=== PATIENT | male | born 1960 | race Caucasian/White ===

== ENCOUNTER → 2016-08-31 | Outpatient (CLI) | payer OTHER ==
[~2016-08-31] MED LIST: ALEV220T26 PO; COUM2.5T11 PO; FENO160T10 PO; LOPI600T PO; MILKSUS PO; MIRA3350 PO; PERC5TAB6 PO; SENN8.6C PO; SIMV20TA2 PO; SIMV40TA2 PO
--- NOTE | 2016-08-31 14:33 | REP ---
RIGHT FOOT, TWO VIEWS: HISTORY: Injury. There is no acute fracture or dislocation. The joint spaces are normal in appearance. A 7 mm radiopaque foreign body is present in the soft tissue ventral to the second metatarsophalangeal joint space. IMPRESSION: Radiopaque foreign body as described above.
== END ==
LOC: M CLY 13:51
PROVIDERS: ATTEND Nurse Practitioner
DX: S90.851A Superficial foreign body, right foot, initial encounter (principal); X58.XXXA Exposure to other specified factors, initial encounter; Y92.89 Other specified places as the place of occurrence of the external cause; Y93.89 Activity, other specified; Y99.8 Other external cause status

== ENCOUNTER → 2018-03-13 | Outpatient (REF) | payer OTHER ==
[2018-03-13 17:43] LABS: ESTIMATED AVERAGE GLUCOSE 128 MG/DL (60-110); HEMOGLOBIN A1c 6.1 %
[2018-03-13 19:26] LABS: ALBUMIN 3.2 GM/DL (3.2-5.2); ALBUMIN/GLOBULIN RATIO 0.84 (1.00-1.93); ALKALINE PHOSPHATASE 101 U/L (45-117); ALT/SGPT 58 U/L (12-78); ANION GAP 9 MEQ/L (8-16); AST/SGOT 35 U/L (7-37); BILIRUBIN,TOTAL 0.5 MG/DL (0.2-1.0); BLOOD UREA NITROGEN 12 MG/DL (7-18); CALCIUM LEVEL 7.6 MG/DL (8.5-10.1); CARBON DIOXIDE LEVEL 24 MEQ/L (21-32); CHLORIDE LEVEL 105 MEQ/L (98-107); CHOLESTEROL LEVEL 288 MG/DL (<200); CHOLESTEROL RISK RATIO 12.521 (<5); CREATININE FOR GFR 0.97 MG/DL (0.70-1.30); GLOMERULAR FILTRATION RATE > 60.0 (>56); GLUCOSE, FASTING 166 MG/DL (70-100); HDL CHOLESTEROL 23 MG/DL (>40); NON-HDL-C 265 MG/DL; POTASSIUM SERUM 4.7 MEQ/L (3.5-5.1); SODIUM LEVEL 138 MEQ/L (136-145); TRIGLYCERIDES LEVEL 2199 MG/DL (<150)
== END ==
LOC: M SFHCCLAY 13:00
DX: E78.2 Mixed hyperlipidemia (principal); R73.9 Hyperglycemia, unspecified

== ENCOUNTER → 2018-07-03 | Outpatient (REF) | payer OTHER ==
[~2018-07-03] MED LIST changes: -COUM2.5T11 PO; +COUM2.5T17 PO; +MILK120011 PO; -MILKSUS PO; +PERC5TAB12 PO; -PERC5TAB6 PO
== END ==
LOC: M SFHCCLAY 16:16
PROVIDERS: ATTEND Family Medicine
DX: C44.319 Basal cell carcinoma of skin of other parts of face (principal)

== ENCOUNTER → 2018-08-13 | Outpatient (CLI) | payer OTHER ==
--- NOTE | 2018-08-14 02:59 | REP ---
Clinical: Preoperative assessment . Comparison: 09/02/2014 . Technique: PA and lateral. Findings: The mediastinum and cardiac silhouette are normal. Airway is patent and midline. The lung boykin are clear and without acute consolidation, effusion, or pneumothorax. The skeletal structures are intact and normal. Impression: 1. No acute cardiopulmonary process.
== END ==
LOC: M CLY 14:22
PROVIDERS: ATTEND Family Medicine
DX: Z01.818 Encounter for other preprocedural examination (principal)

== ENCOUNTER → 2018-08-14 | Outpatient (REF) | payer OTHER ==
[2018-08-14 11:31] LABS: MEAN CORPUSCULAR HEMOGLOBIN 36.6 pg (27.0-33.0); MEAN CORPUSCULAR HGB CONC 36.2 g/dl (32.0-36.5); MEAN CORPUSCULAR VOLUME 101.1 fl (80.0-96.0); PLATELET COUNT, AUTOMATED 217 10^3/uL (150-450); RED BLOOD COUNT 4.65 10^6/uL (4.30-6.10); WHITE BLOOD COUNT 6.3 10^3/uL (4.0-10.0)
[2018-08-14 13:10] LABS: BLOOD UREA NITROGEN 11 MG/DL (7-18); CARBON DIOXIDE LEVEL 24 MEQ/L (21-32); CHLORIDE LEVEL 101 MEQ/L (98-107); CREATININE FOR GFR 1.13 MG/DL (0.70-1.30); GLOMERULAR FILTRATION RATE > 60.0 (>56); GLUCOSE, FASTING 267 MG/DL (70-100); POTASSIUM SERUM 4.3 MEQ/L (3.5-5.1); SODIUM LEVEL 136 MEQ/L (136-145)
== END ==
LOC: M SFHCCLAY 08:44
PROVIDERS: ATTEND Family Medicine
DX: Z01.818 Encounter for other preprocedural examination (principal)

== ENCOUNTER 2018-08-20 09:44 | Day surgery (SDC) | payer OTHER ==
[~2018-08-20] VITALS: Ht 185.4 cm; Wt 132.9 kg
[2018-08-20] MEDS ORDERED: LIDOCAINE W/EPINEPHRINE 1% 20ML VIAL As Ordered ONE (10:21)
[2018-08-20] MEDS ORDERED: LIDOCAINE 2% W/EPIN INJ 20ML **PRES FREE As Ordered ONE (10:21)
[2018-08-20] MEDS ORDERED: POVIDONE-IODINE 5% OPHTH PREP SOL 30ML As Ordered ONE (10:22)
[2018-08-20] MEDS ORDERED: ceFAZolin 1GM INJ (J0690 PER 500MG) As Ordered ONE (10:28)
[2018-08-20] MEDS ORDERED: LABETALOL HCL 100 MG/20 ML VIAL As Ordered ONE (11:18)
[2018-08-20] MEDS ORDERED: ONDANSETRON 4MG/2ML VIAL (J2405) As Ordered ONE (11:18)
[2018-08-20] MEDS ORDERED: LIDOCAINE 2% INJ 100 MG/5 ML SDV (FOR ANES.) As Ordered ONE (11:18)
[2018-08-20] MEDS ORDERED: ESMOLOL INJ 100MG/10ML VIAL As Ordered ONE (11:18)
[2018-08-20] MEDS ORDERED: fentaNYL 100 MCG/2 ML INJECTION (J3010) As Ordered ONE (11:18)
[2018-08-20] MEDS ORDERED: PROPOFOL 200 MG/20 ML VIAL As Ordered ONE (11:18)
[2018-08-20] MEDS ORDERED: MIDAZOLAM INJ 2 MG/2 ML VIAL (J2250) As Ordered ONE (11:18)
[2018-08-20] MEDS ORDERED: KETAMINE HCL 200 MG/20 ML VIAL As Ordered ONE (11:18)
--- NOTE | 2018-08-20 12:15 | POST-OPPD ---
Postoperative Procedure Note Date Of Procedure: Aug 20, 2018 PREOPERATIVE DIAGNOSIS: Left taoist malignant lesion POSTOPERATIVE DIAGNOSIS: same FINDINGS: lesion 1x1cm PROCEDURE: Excision malignant lesion left taoist SURGEON: Dr Prasad ANESTHESIA: local with sedation SPECIMENS: left taoist malignant lesion FS (suture at 12 O'clock), additional margines 6-12o'clock ESTIMATED BLOOD LOSS: 1 cc REPLACED: none DRAINS: none COMPLICATIONS: none POSTOPERATIVE CONDITION: Stable ZHEN PRASAD DO Aug 20, 2018 12:15
[2018-08-20 12:50] VITALS: BP 141/96
--- NOTE | 2018-08-20 15:21 | RO ---
DATE OF PROCEDURE: 08/20/2018 PREPROCEDURE DIAGNOSIS: Left temporal malignant lesion. POSTPROCEDURE DIAGNOSIS: Left temporal malignant lesion. OPERATIVE PROCEDURE: Excision of malignant lesion left scientologist. SURGEON: Ludmila Lyons DO ANESTHESIA: Local with sedation. SPECIMENS: 1. Left temporal malignant lesion frozen section. 2. Suture at 12-o'clock. 3. The second specimen is additional margins 6-o'clock to 12-o'clock. ESTIMATED BLOOD LOSS: 1 mL REPLACED: None. DRAINS: None. COMPLICATIONS: None. INDICATION FOR THE PROCEDURE: This is a 58-year-old male who developed a red scaly lesion on his left scientologist. There was biopsy by his primary care doctor with diagnosis of basal cell nodular type. Patient is here for formal excision. The lesion measures 1 x 1 cm, pink in color, and scaly and it is on left scientologist. The lesion was outlined in preoperative holding area. Informed consent was obtained. All the risks and benefits, and alternatives discussed with the patient and he is ready to proceed. DESCRIPTION OF PROCEDURE: We brought the patient into the operating room, placed in supine position. Sequential stockings placed on the lower calves. He was prepped and draped in the usual sterile fashion at the start of procedure by infiltrating the with 2% lidocaine with epinephrine. When the local anesthetic had taken effect, an elliptical incision was carried including the whole lesion entirely with 2 mm margins. The suture is placed at 12-o'clock and then the specimen sent to pathology. Margins are positive between 8-o'clock and 12-o'clock, so an additional 2 mm margin was taken from 6-o'clock to 12-o'clock and sent to pathology. Upon examining that specimen, all the margins are free of tumor and with planned closure of our wound which is at this point 1.5 x 1.5 cm. The undermining was done using electrocautery and the flaps were elevated and then closed in layers with interrupted #4-0 Vicryl sutures, #5-0 Monocryl sutures and a dermal stitch of #6-0 plain gut suture. Steri-Strips were applied. Patient tolerated the procedure well and he was transferred to the recovery room in stable condition. BRADY
== END 2018-08-20 12:52 | disposition home or self-care (01) ==
LOC: M SDC 09:44
PROVIDERS: ATTEND Plastic Surgery Surgery of the Hand
DX: C44.319 Basal cell carcinoma of skin of other parts of face (principal); I10 Essential (primary) hypertension; E78.00 Pure hypercholesterolemia, unspecified; M15.0 Primary generalized (osteo)arthritis; F41.9 Anxiety disorder, unspecified; F32.9 Major depressive disorder, single episode, unspecified; G43.909 Migraine, unspecified, not intractable, without status migrainosus; J45.909 Unspecified asthma, uncomplicated; R06.83 Snoring; G47.9 Sleep disorder, unspecified; F14.90 Cocaine use, unspecified, uncomplicated; E66.9 Obesity, unspecified; Z68.38 Body mass index [BMI] 38.0-38.9, adult; Z79.899 Other long term (current) drug therapy; Z86.718 Personal history of other venous thrombosis and embolism; Z87.820 Personal history of traumatic brain injury; Z96.641 Presence of right artificial hip joint
CPT/HCPCS: 11442; 12051; 88305; 88331; J2250; J2405; J3010

== ENCOUNTER → 2018-10-25 | Outpatient (REF) | payer OTHER ==
[2018-10-25 11:43] LABS: HEMOGLOBIN A1c 6.9 %
[2018-10-25 12:58] LABS: ALBUMIN 3.3 GM/DL (3.2-5.2); ALT/SGPT 71 U/L (12-78); BILIRUBIN,TOTAL 0.6 MG/DL (0.2-1.0); BLOOD UREA NITROGEN 12 MG/DL (7-18); CALCIUM LEVEL 9.1 MG/DL (8.5-10.1); CARBON DIOXIDE LEVEL 26 MEQ/L (21-32); CHLORIDE LEVEL 104 MEQ/L (98-107); CHOLESTEROL LEVEL 319 MG/DL (<200); CHOLESTEROL RISK RATIO 13.869 (<5); CREATININE FOR GFR 0.92 MG/DL (0.70-1.30); GLOMERULAR FILTRATION RATE > 60.0 (>56); GLUCOSE, FASTING 172 MG/DL (70-100); HDL CHOLESTEROL 23 MG/DL (>40); NON-HDL-C 296 MG/DL; POTASSIUM SERUM 4.6 MEQ/L (3.5-5.1); SODIUM LEVEL 136 MEQ/L (136-145); TRIGLYCERIDES LEVEL 2620 MG/DL (<150)
== END ==
LOC: M SFHCCLAY 08:46
PROVIDERS: ATTEND Family Medicine
DX: E78.2 Mixed hyperlipidemia (principal); I10 Essential (primary) hypertension; R73.03 Prediabetes; F10.10 Alcohol abuse, uncomplicated

== ENCOUNTER → 2019-06-09 | Outpatient (REF) | payer OTHER ==
[~2019-06-09] MED LIST changes: -SIMV20TA2 PO; +SIMV20TA22 PO
[2019-06-09 17:07] LABS: BLOOD UREA NITROGEN 12 MG/DL (7-18); CALCIUM LEVEL 8.4 MG/DL (8.5-10.1); CARBON DIOXIDE LEVEL 26 MEQ/L (21-32); CHLORIDE LEVEL 102 MEQ/L (98-107); CREATININE FOR GFR 0.96 MG/DL (0.70-1.30); GLOMERULAR FILTRATION RATE > 60.0 (>56); GLUCOSE, FASTING 206 MG/DL (70-100); HEMOGLOBIN A1c 7.6 %; POTASSIUM SERUM 4.2 MEQ/L (3.5-5.1); SODIUM LEVEL 136 MEQ/L (136-145)
[2019-06-09 17:20] LABS: MAU/CREAT RATIO 79.1 MCG/MG (0.0-30.0)
== END ==
LOC: M SFHCCLAY 11:02
PROVIDERS: ATTEND Family Medicine
DX: E11.9 Type 2 diabetes mellitus without complications (principal)

== ENCOUNTER → 2019-10-15 | Outpatient (REF) | payer OTHER ==
[2019-10-15 16:39] LABS: ALBUMIN 3.5 GM/DL (3.2-5.2); ALT/SGPT 72 U/L (12-78); BILIRUBIN,TOTAL 0.7 MG/DL (0.2-1.0); BLOOD UREA NITROGEN 9 MG/DL (7-18); CALCIUM LEVEL 8.5 MG/DL (8.5-10.1); CARBON DIOXIDE LEVEL 26 MEQ/L (21-32); CHLORIDE LEVEL 103 MEQ/L (98-107); CHOLESTEROL LEVEL 351 MG/DL (<200); CREATININE FOR GFR 0.81 MG/DL (0.70-1.30); GLOMERULAR FILTRATION RATE > 60.0 (>56); GLUCOSE, FASTING 184 MG/DL (70-100); HDL CHOLESTEROL 27 MG/DL (>40); NON-HDL-C 324 MG/DL; POTASSIUM SERUM 4.3 MEQ/L (3.5-5.1); SODIUM LEVEL 138 MEQ/L (136-145); TOTAL PROTEIN 7.6 GM/DL (6.4-8.2); TRIGLYCERIDES LEVEL 746 MG/DL (<150)
[2019-10-15 16:52] LABS: HEMOGLOBIN A1c 7.4 %
== END ==
LOC: M SFHCCLAY 10:37
PROVIDERS: ATTEND Family Medicine
DX: F10.10 Alcohol abuse, uncomplicated (principal); E11.9 Type 2 diabetes mellitus without complications; E78.1 Pure hyperglyceridemia

== ENCOUNTER → 2019-10-16 | Outpatient (REF) | payer OTHER ==
[2019-10-16 17:01] LABS: MAU/CREAT RATIO 55.9 MCG/MG (0.0-30.0)
== END ==
LOC: M SFHCCLAY 15:55
PROVIDERS: ATTEND Family Medicine
DX: E11.9 Type 2 diabetes mellitus without complications (principal)

== ENCOUNTER → 2019-11-06 | Outpatient (REF) | payer OTHER | LOC: M LAB REF 17:40 | PROVIDERS: ATTEND Dermatology | DX: D22.61 Melanocytic nevi of right upper limb, including shoulder (principal) ==

== ENCOUNTER → 2020-01-26 | Outpatient (REF) | payer OTHER ==
[2020-01-27 20:31] LABS: BLOOD UREA NITROGEN 13 MG/DL (7-18); CALCIUM LEVEL 9.4 MG/DL (8.5-10.1); CARBON DIOXIDE LEVEL 29 MEQ/L (21-32); CHLORIDE LEVEL 106 MEQ/L (98-107); CREATININE FOR GFR 0.92 MG/DL (0.70-1.30); GLOMERULAR FILTRATION RATE > 60.0 (>56); GLUCOSE, FASTING 130 MG/DL (70-100); POTASSIUM SERUM 3.9 MEQ/L (3.5-5.1); SODIUM LEVEL 140 MEQ/L (136-145)
[2020-01-27 20:46] LABS: HEMOGLOBIN A1c 6.5 %
== END ==
LOC: M LABDRAWC 15:55
PROVIDERS: ATTEND Family Medicine
DX: I11.9 Hypertensive heart disease without heart failure (principal); E11.9 Type 2 diabetes mellitus without complications

== ENCOUNTER → 2020-03-04 | Outpatient (REF) | payer OTHER ==
[2020-03-05 12:43] LABS: BASO % 0.3 % (0.0-1.0); EOS % 0.4 % (0.0-3.0); HEMATOCRIT 45.6 % (42.0-52.0); HEMOGLOBIN 15.6 g/dl (13.5-17.5); LYMPH # 1.6 10^3/uL (1.5-5.0); LYMPH % 23.7 % (24.0-44.0); MEAN CORPUSCULAR HEMOGLOBIN 34.9 pg (27.0-33.0); MEAN CORPUSCULAR HGB CONC 34.2 g/dl (32.0-36.5); MONO # 0.5 10^3/uL (0.0-0.8); MONO % 7.3 % (0.0-5.0); NEUTROPHILS # 4.6 10^3/uL (1.5-8.5); PLATELET COUNT, AUTOMATED 281 10^3/uL (150-450); RED BLOOD COUNT 4.47 10^6/uL (4.30-6.10); WHITE BLOOD COUNT 6.8 10^3/uL (4.0-10.0)
[2020-03-05 13:35] LABS: THYROID STIMULATING HORMONE 1.81 uIU/ML (0.358-3.740)
== END ==
LOC: M SFHCCLAY 15:43
PROVIDERS: ATTEND Family Medicine
DX: R63.4 Abnormal weight loss (principal)

== ENCOUNTER → 2020-03-26 | Outpatient (CLI) | payer OTHER ==
[~2020-03-26] MED LIST changes: +ISOVUE-370 76% 100ML VIAL As Ordered ONE
--- NOTE | 2020-03-26 08:18 | REP ---
INDICATION: WT LOSS, MARIJUANA USE COMPARISON: 09/30/2012 TECHNIQUE: Axial contrast enhanced images from the thoracic inlet to the upper abdomen with coronal and sagittal reformations using 75 ml Isovue 370 intravenous contrast material. This CT examination was performed using the following dose reduction techniques: Automated exposure control, adjustment of mA and/or kv according to the patient's size, and use of iterative reconstruction technique. FINDINGS: Bilateral lung boykin are well aerated and essentially clear. No consolidation, pleural effusion, or pneumothorax. No suspicious nodule or mass lesion. Tracheobronchial tree is patent. No axillary, hilar, or mediastinal adenopathy. Mediastinum demonstrates normal thoracic aorta and pulmonary vasculature. Atherosclerotic changes to the coronary arteries suggested without cardiomegaly or pericardial effusion. Surrounding musculoskeletal structures are intact and without acute osseous abnormality. Upper abdomen demonstrates hepatosteatosis and normal bilateral adrenal glands. IMPRESSION: Normal contrast-enhanced chest CT. No acute mediastinal or pleuroparenchymal process. Hepatosteatosis. <Electronically signed by Mg Cortes > 03/26/20 [id number]
== END ==
LOC: M RAD 07:42
PROVIDERS: ATTEND Family Medicine
DX: R63.4 Abnormal weight loss (principal); K75.81 Nonalcoholic steatohepatitis (NASH)
CPT/HCPCS: 71260; Q9967

== ENCOUNTER → 2020-05-20 | Outpatient (REF) | payer OTHER ==
[~2020-05-20] MED LIST changes: -ISOVUE-370 76% 100ML VIAL As Ordered ONE
[2020-05-20 17:55] LABS: BLOOD UREA NITROGEN 9 MG/DL (7-18); CREATININE FOR GFR 0.98 MG/DL (0.70-1.30); GLOMERULAR FILTRATION RATE > 60.0 (>56)
== END ==
LOC: M LABDRAWC 15:40
PROVIDERS: ATTEND Internal Medicine Gastroenterology
DX: R63.4 Abnormal weight loss (principal)

== ENCOUNTER → 2020-05-25 | Outpatient (CLI) | payer OTHER ==
[~2020-05-25] MED LIST changes: +GASTROGRAFIN SOLUTION 30ML (Q9963) As Ordered ONE; +ISOVUE-370 76% 100ML VIAL As Ordered ONE
--- NOTE | 2020-05-25 15:52 | REP ---
INDICATION: ABN WT LOSS. COMPARISON: None TECHNIQUE: Axial contrast-enhanced images from the lung bases to the pubic symphysis using oral and 100 cc Isovue 370 intravenous contrast material. Coronal and sagittal reformations obtained. This CT examination was performed using the following dose reduction techniques: Automated exposure control, adjustment of mA and/or kv according to the patient's size, and the use of iterative reconstruction technique. FINDINGS: Liver demonstrates hepatosteatosis without focal hepatic lesion. The spleen, pancreas, gallbladder, bilateral adrenal glands and kidneys are normal. The enteric system including stomach, small, and large bowel appears normal. No evidence for obstruction or acute inflammatory process. Normal terminal ileum and cecum are identified in the right lower quadrant. Evidence for prior appendectomy. Pelvis demonstrates normal bladder and age-appropriate prostate/seminal vesicles. No ascites. No free air. No intraperitoneal or retroperitoneal adenopathy. Abdominal aorta and vasculature appear normal. Musculoskeletal structures demonstrate degenerative changes primarily involving the left hip and lumbar spine. IMPRESSION: No acute abdominopelvic pathology appreciated. Hepatosteatosis. <Electronically signed by Mg Cortes > 05/25/20 [id number]
== END ==
LOC: M RAD 13:28
PROVIDERS: ATTEND Internal Medicine Gastroenterology
DX: K76.0 Fatty (change of) liver, not elsewhere classified (principal); R63.4 Abnormal weight loss
CPT/HCPCS: 74177; Q9963; Q9967

== ENCOUNTER → 2020-07-21 | Outpatient (CLI) | payer OTHER ==
[~2020-07-21] MED LIST changes: +AMLO1TAB24 PO; -GASTROGRAFIN SOLUTION 30ML (Q9963) As Ordered ONE; -ISOVUE-370 76% 100ML VIAL As Ordered ONE; +TRIA1OI TOP; +VENTAER INH
== END ==
LOC: M LABSMTC 10:16
PROVIDERS: ATTEND Anesthesiology
DX: Z01.812 Encounter for preprocedural laboratory examination (principal); Z20.822 Contact with and (suspected) exposure to COVID-19

== ENCOUNTER 2020-07-26 10:57 | Day surgery (SDC) | payer OTHER ==
[~2020-07-26] VITALS: Ht 182.9 cm; Wt 112.0 kg
[~2020-07-26 10:57] MED LIST changes: +LIDOCAINE 2% 100MG/5ML SDV (FOR ANES.) As Ordered ONE; +NS 1,000 ML IV ONE; +fentaNYL 100 MCG/2 ML INJECTION (J3010) As Ordered ONE; +propofoL 200 MG/20 ML VIAL As Ordered ONE
--- OUTSIDE RECORDS SUMMARY | 2020-07-26 11:05 | CCD ---
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 Name Role Phone Chantell Marks Unavailable PROBLEMS Type Condition ICD9-CM Code [id number] Code Onset Dates Condition S tatus SNOMED Code Notes Problem Borderline personality disorder F60.3 Active 75082261 Problem Neuropathy G62.9 Active 608262132 Problem Non morbid obesity, unspecified obesity type E66.9 Active 707574416 Problem Pain in right shoulder M25.511 Active 572985738 61570147 Problem Other chronic pain G89.29 Active 74388748 Problem Left hip pain M25.552 Active 90466731 Problem Drug abuse F19.10 Active 14788637 Problem Pain in right hip M25.551 Active 29710970 Problem Allergic rhinitis, cause unspecified J30.9 Act jensen 47944287 Problem Pain in left hip M25.552 Active 03814571 Problem Depressive disorder, not elsewhere classified F32.9 Active 89201377 Problem Sleep disturbance G47.9 Active 00788796 Problem Alcohol abuse F10.10 Active 57306762 Problem Melanocytic nevi of trunk D22.5 Active 834834 002 Problem Melanocytic nevi of right upper limb, including shoulder D22.61 Active 172981737 Problem Hypertriglyceridemia E78.1 Active 597527583 Problem Xerosis cutis L85.3 Active 23123311 Problem Acrochordon L91.8 Active 577272174 Problem Decreased sensation of foot R20.8 Active 2473 63595 Problem Hypertensive heart disease without heart failure I 11.9 Active 90596490 Problem Mixed hyperlipidemia E78.2 Active 148855368 Problem Sebaceous hyperplasia of face L73.8 Active 23 9482990 Problem Unspecified asthma J45.909 Active 232714922 Problem Penile curvature, acquired N48.89 Active 71555 007 Problem Peyronie disease N48.6 Active 7939587 Problem Dermatofibroma D23.9 Active 046778940 Problem Type 2 diabetes mellitus wit h diabetic neuropathy, without long-term current use of insulin E11.40 Active 00869861 Problem History of nonmelanoma skin cancer Z85.828 Activ e 711248402 Problem Hepatic steatosis K76.0 Active 789821071 Problem Melanocytic nevi of face D22.30 Active 6563106 04 Problem Melanocytic nevi of left upper limb, including shoulder D22.62 Active 704343267 Problem Allergic contact dermatitis due to photocontact other than sunburn, current L57.8 Active 811106973 Problem Actinic keratoses L57.0 Active 847679446 Problem Microalbuminuria R80.9 Active 660870546 Problem Type 2 diabetes mellitus with other diabetic kid ryan complication E11.29 Active [id number] ALLERGIES Allergen (clinical drug ingredient) Drug/Non Drug Allergy do cumented on EMR Reaction Allergy Type Onset Date Status seasonal Unknown Non Drug Allergy Active ENCOUNTERS from 1960 to 2020-05-15 Encounter Location Date Provider Diagnosis [facility] [address] [place] [address] 10 May Chantell Marks IMMUNIZATIONS Vaccine Route Administration Date Status Influenza (18 yrs & older) Flublok Unknown Apr 03, 2018 Refused Influenza (6mo & up) Fluzone Unknown August 31, 2016 Ref used Influenza (6mo & up) Fluzone Unknown Mar 28, 2016 Ref used Influenza (6mo & up) Fluzone IM Mar 23, 2011 Adm inistered Influenza (6mo & up) Fluzone im May 17, 2010 Adm inistered SOCIAL HISTORY Tobacco Use: Social History Observation Description Date Details (start date - stop date) Never Smoker Sex Assigned At : Social History Observation Description Sex Assigned At Unknown Education: Question Answer Notes Level of Education: Finished College Audit Question Answer Notes Total Score: 17 Interpretation: Simple Advice plus Brief Counseling and Continued Monitoring Bahai: Question Answer Notes Bahai 08 Restorationist Sexual Hx: Question Answer Notes Had sex in the last 12 months (vaginal, oral, or anal)? Yes Have you ever had an STD? Yes Prevention Strategies discussed: Condoms with Women only Use protection? No Other? Yes Syphilis? Yes Chlamydia? Yes Drug and Alcohol Question Answer Notes Total Score: 5 Interpretation: Moderate level Alcohol Screening: Question Answer Notes Did you have a drink containing alcohol in the past year? Ye s Points 11 Interpretation Positive How often did you have six or more drinks on one occas ion in the past year? Daily or almost daily (4 points) How many drinks did you have on a typica l day when you were drinking in the past year? 7 to 9 (3 points) How often did you have a drink containing alcohol in t he past year? Four or more times a week (4 points) BMI Care Goal Follow-Up Question Answer Notes Above Normal BMI Follow-Up Giving encouragement to exercise Tobacco Use: Question Answer Notes Are you a: never smoker REASON FOR REFERRAL No Information VITAL SIGNS No information MEDICATIONS Medication SIG (Take, Route, Frequency, Duration) Notes Start Da te End Date Status Gemfibrozil 600 MG 1 tablet Orally Twice a day for 30 days Apr, Active AmLODIPine Besylate 5 MG 1 tablet Orally Once a day for 30 days Apr, Active PROCEDURES No Information RESULTS No Results REASON FOR VISIT cough, wheezing MEDICAL (GENERAL) HISTORY Type Description Date Medical History Elevated trig Medical History Elevated chol Medical History Asthma Medical History Pancreatitis Medical History Arthritis Medical History Depression Medical History DVT right forearm Surgical History Rt knee cartilage 1968 Surgical History Mandable fx 1979 Surgical History Rt shoulder separation 1982 Surgical History Hernia 2004 Surgical History Abcess tonsil 1991 Surgical History Right hip replac 2014 Surgical History Appendectomy 02/06/17 Surgical History skin cancer removed from left side face 08/2018 Hospitalization History Gerd episode,Htn 04/2013 Hospitalization History [facility] 12/2013 Hospitalization History !0 days-Nathan Reubens-appendectomy 02/06/17 Goals Section No Information Health Concerns No Information MEDICAL EQUIPMENT No Information MENTAL STATUS No Information FUNCTIONAL STATUS No Information ASSESSMENTS No Information PLAN OF TREATMENT Next Appt Details Provider Name:Leonel Heller, 2020-11 02:30:00 PM, [address] [facility] [facility], [place], [address], Insurance Providers Payer Name Payer Address Payer Phone Insured Name Patient Relati onship to Insured Coverage Start Date Coverage End Date [facility] [address] [place] [phone] KELLEY PIRES
--- OUTSIDE RECORDS SUMMARY | 2020-07-26 11:05 | CCD | Continuity of Care Document ---
Author Bryan Benjamin MD Organization Unknown Address [address] [place] [address] Phone [phone] Care Team Providers Care Shank Threader Name Role Phone Chantell Marks D.O. AUTM [phone] Problems Active Problems Provider Date Essential hypertension Ludmila Lyons DO Onset: 07/18/2018 Social History Type Date Description Comments Sex Unknown ETOH Use >2 per day ETOH Use Reports History Of Heavy Alcohol Use ETOH Use Frequent Alcohol Abuse/Binge Dri nker Tobacco Use Start: Unknown Non Smoker Recreational Drug Use Former Drug User Smoking Status Reviewed: 08/08/18 Non Smoker Allergies, Adverse Reactions, Alerts Description No Known Drug Allergies Medications Active Medications SIG Qnty Indications Ordering Provide r Date Suprep Bowel Prep Kit 17.5-3.13-1.6GM/177ML Solution as directed - see dr keyes instructions 1Kit R63.4 Dean Ramos MD 05/18/2020 Gemfibrozil 600mg Tablets 2 by mouth every day Unknown Amlodipine Besylate 5mg Tablets daily Unknown Albuterol Sulfate (2 .5mg/3ML) 0.083% Nebulizer 1 vial four times a day as needed Unknown Immunizations Description No Information Available Vital Signs Date Vital Result Comment 05/18/2020 11:01am BP Systolic 200 mmHg BP Diastolic 140 mmHg Height 73 inches 6'1" Weight 252.00 lb BMI (Body Mass Index) 33.2 kg/m2 Galt Body Weight 184 lb Weight 114.307 kg BSA (Body Surface Area) 2.37 m2 08/26/2018 11:25am BP Systolic 157 mmHg BP Diastolic 89 mmHg Heart Rate 89 /min O2 % BldC Oximetry 96 % Respiratory Rate 18 /min Body Temperature 97.8 F Height 73 inches 6'1" Weight 285.00 lb BMI (Body Mass Index) 37.6 kg/m2 Galt Body Weight 184 lb Weight 129.276 kg BSA (Body Surface Area) 2.50 m2 Procedures Description No Information Available Medical Devices Description No Information Available Encounters Type Date Location Provider Dx Diagnosis Office Visit 05/18/2020 10:30a [facility] Dean Ramos MD R63.4 Abnormal weight loss Assessments Date Code Description Provider 05/18/2020 R63.4 Abnormal weight loss Dean hernandez MD Plan of Treatment 05/18/2020 - Dean Ramos MD* R63.4 Abnormal weight loss* New Medication:* Suprep Bowel Prep Kit 17.5-3.13-1.6 GM/177ML * New Labs:* BUN & Creatinine ([facility]), Ordered: 05/18/20 * New Xrays:* CT Abdomen And Pelvis W/ Contrast, Ordered: 05/18/20 * New Orders:* EGD and Colonoscopy, Ordered: 05/18/20 Functional Status Description No Information Available Mental Status Description No Information Available Referrals Refer to Reason for Referral Status Appt Date Dean Ramos MD WEIGHT LOSS, COLO SCREENING Scheduled [address] 07/19/2019 [facility], Gastroenterology [address], [address] [place] [address] [phone]
--- OUTSIDE RECORDS SUMMARY | 2020-07-26 11:06 | CCD ---
Author Author [facility] Organization [facility] Address Unknown Phone Unavailable Care Team Providers Care Algology Teacher Name Role Phone Vivien STARKEY Unavailable Unavailable Vivien STARKEY Unavailable Unavailable Vivien STARKEY PA Unavailable Unavailable Vivien STARKEY PA Unavailable Unavailable Vivien STARKEY PA Unavailable Unavailable Vivien STARKEY PA Unavailable Unavailable Vivien STARKEY PA Unavailable Unavailable Vivien STARKEY PA Unavailable Unavailable Vivien STARKEY PA Unavailable Unavailable SYMENOW, G CHRISTOPHER PA Unavailable Unavailable SYMENOW, G CHRISTOPHER PA Unavailable Unavailable SYMENOW, G CHRISTOPHER PA Unavailable Unavailable SYMENOW, G CHRISTOPHER PA Unavailable Unavailable SYMENOW, G CHRISTOPHER PA Unavailable Unavailable SYMENOW, G CHRISTOPHER PA Unavailable Unavailable SYMENOW, G CHRISTOPHER PA Unavailable Unavailable SYMENOW, G CHRISTOPHER PA Unavailable Unavailable SHRADDHA, L MIS PA Unavailable Unavailable SHRADDHA, L MIS PA Unavailable Unavailable SHRADDHA, L MIS PA Unavailable Unavailable SHRADDHA, L MIS PA Unavailable Unavailable SHRADDHA, L MIS PA Unavailable Unavailable SHRADDHA, L MIS PA Unavailable Unavailable SHRADDHA, L MIS PA Unavailable Unavailable SHRADDHA, L MIS PA Unavailable Unavailable SHRADDHA, L MIS PA Unavailable Unavailable SHRADDHA, L MIS PA Unavailable Unavailable SHRADDHA, L MIS PA Unavailable Unavailable SHRADDHA, L MIS PA Unavailable Unavailable SHRADDHA, L MIS PA Unavailable Unavailable SHRADDHA, L MIS PA Unavailable Unavailable SHRADDHA, L MIS PA Unavailable Unavailable SHRADDHA, L MIS PA Unavailable Unavailable SHRADDHA, L MIS PA Unavailable Unavailable SHRADDHA, L MIS PA Unavailable Unavailable SHRADDHA, L MIS PA Unavailable Unavailable Alberry, D Cary USER INTERFACE ARTIST Unavailable Unavailable Alberry, D Cary USER INTERFACE ARTIST Unavailable Unavailable Alberry, D Cary USER INTERFACE ARTIST Unavailable Unavailable Alberry, D Cary USER INTERFACE ARTIST Unavailable Unavailable Alberry, D Cary USER INTERFACE ARTIST Unavailable Unavailable Alberry, D Cary USER INTERFACE ARTIST Unavailable Unavailable Alberry, D Cary USER INTERFACE ARTIST Unavailable Unavailable Alberry, D Cary USER INTERFACE ARTIST Unavailable Unavailable Alberry, D Cary USER INTERFACE ARTIST Unavailable Unavailable Alberry, D Cary USER INTERFACE ARTIST Unavailable Unavailable Alberry, D Cary USER INTERFACE ARTIST Unavailable Unavailable Alberry, D Cary USER INTERFACE ARTIST Unavailable Unavailable Alberry, D Cary USER INTERFACE ARTIST Unavailable Unavailable Alberry, D Cary USER INTERFACE ARTIST Unavailable Unavailable Alberry, D Cary USER INTERFACE ARTIST Unavailable Unavailable Alberry, D Cary USER INTERFACE ARTIST Unavailable Unavailable Alberry, D Cary USER INTERFACE ARTIST Unavailable Unavailable Alberry, D Cary USER INTERFACE ARTIST Unavailable Unavailable Alberry, D Cary USER INTERFACE ARTIST Unavailable Unavailable Alberry, D Cary USER INTERFACE ARTIST Unavailable Unavailable Alberry, D Cary USER INTERFACE ARTIST Unavailable Unavailable Alberry, D Cary USER INTERFACE ARTIST Unavailable Unavailable Alberry, D Cary USER INTERFACE ARTIST Unavailable Unavailable Alberry, D Cary USER INTERFACE ARTIST Unavailable Unavailable Alberry, D Cary USER INTERFACE ARTIST Unavailable Unavailable Alberry, D Cary USER INTERFACE ARTIST Unavailable Unavailable Alberry, D Cary USER INTERFACE ARTIST Unavailable Unavailable Alberry, D Cary USER INTERFACE ARTIST Unavailable Unavailable Alberry, D Cary USER INTERFACE ARTIST Unavailable Unavailable Alberry, D Cary USER INTERFACE ARTIST Unavailable Unavailable Alberry, D Cary USER INTERFACE ARTIST Unavailable Unavailable Alberry, D Cary USER INTERFACE ARTIST Unavailable Unavailable Alberry, D Cary USER INTERFACE ARTIST Unavailable Unavailable Alberry, D Cary USER INTERFACE ARTIST Unavailable Unavailable Alberry, D Cary USER INTERFACE ARTIST Unavailable Unavailable Alberry, D Cary USER INTERFACE ARTIST Unavailable Unavailable Alberry, D Cary USER INTERFACE ARTIST Unavailable Unavailable Alberry, D Cary USER INTERFACE ARTIST Unavailable Unavailable Alberry, D Cary USER INTERFACE ARTIST Unavailable Unavailable Alberry, D Cary USER INTERFACE ARTIST Unavailable Unavailable Alberry, D Cary USER INTERFACE ARTIST Unavailable Unavailable Alberry, D Cary USER INTERFACE ARTIST Unavailable Unavailable Alberry, D Cary USER INTERFACE ARTIST Unavailable Unavailable Alberry, D Cary USER INTERFACE ARTIST Unavailable Unavailable Alberry, D Cary USER INTERFACE ARTIST Unavailable Unavailable Alberry, D Cary USER INTERFACE ARTIST Unavailable Unavailable Alberry, D Cary USER INTERFACE ARTIST Unavailable Unavailable Alberry, D Cary USER INTERFACE ARTIST Unavailable Unavailable Jepma, W Elliot DO Unavailable Unavailable Jepma, W Elliot DO Unavailable Unavailable Jepma, W Elliot DO Unavailable Unavailable Jepma, W Elliot DO Unavailable Unavailable Jepma, W Elliot DO Unavailable Unavailable Jepma, W Elliot DO Unavailable Unavailable Jepma, W Elliot DO Unavailable Unavailable Jepma, W Elliot DO Unavailable Unavailable Jepma, W Elliot DO Unavailable Unavailable Jepma, W Elliot DO Unavailable Unavailable Jepma, W Elilot DO Unavailable Unavailable Jepma, W Elliot DO Unavailable Unavailable Jepma, W Elliot DO Unavailable Unavailable Jepma, W Elliot DO Unavailable Unavailable Jepma, W Elliot DO Unavailable Unavailable Jepma, W Elliot DO Unavailable Unavailable Jepma, W Elliot DO Unavailable Unavailable Jepma, W Elliot DO Unavailable Unavailable Jepma, W Elliot DO Unavailable Unavailable Jepma, W Elliot DO Unavailable Unavailable Jepma, W Elliot DO Unavailable Unavailable Jepma, W Elliot DO Unavailable Unavailable Jepma, W Elliot DO Unavailable Unavailable Jepma, W Elliot DO Unavailable Unavailable Jepma, W Elliot DO Unavailable Unavailable Jepma, W Elliot DO Unavailable Unavailable Jepma, W Elliot DO Unavailable Unavailable Jepma, W Elliot DO Unavailable Unavailable Jepma, W Elliot DO Unavailable Unavailable Jepma, W Elliot DO Unavailable Unavailable Jepma, W Elliot DO Unavailable Unavailable Jepma, W Elliot DO Unavailable Unavailable Jepma, W Elliot DO Unavailable Unavailable Jepma, W Elliot DO Unavailable Unavailable Jepma, W Elliot DO Unavailable Unavailable Jepma, W Elliot DO Unavailable Unavailable Jepma, W Elliot DO Unavailable Unavailable Jepma, W Elliot DO Unavailable Unavailable Jepma, W Elliot DO Unavailable Unavailable Jepma, W Elliot DO Unavailable Unavailable Jepma, W Elliot DO Unavailable Unavailable Jepma, W Elliot DO Unavailable Unavailable Jepma, W Elliot DO Unavailable Unavailable Jepma, W Elliot DO Unavailable Unavailable Jepma, W Elliot DO Unavailable Unavailable Jepma, W Elliot DO Unavailable Unavailable Jepma, W Elliot DO Unavailable Unavailable Jepma, W Elliot DO Unavailable Unavailable Jepma, W Elliot DO Unavailable Unavailable Jepma, W Elliot DO Unavailable Unavailable Jepma, W Elliot DO Unavailable Unavailable Jepma, W Elliot DO Unavailable Unavailable Jepma, W Elliot DO Unavailable Unavailable Jepma, W Elliot DO Unavailable Unavailable Jepma, W Elliot DO Unavailable Unavailable Jepma, W Elliot DO Unavailable Unavailable Jepma, W Elliot DO Unavailable Unavailable Jepma, W Elliot DO Unavailable Unavailable Jepma, W Elliot DO Unavailable Unavailable Anisa, Reginah W Lucy USER INTERFACE ARTIST-C Unavailable Unavailabl e Anisa, Reginah W Lucy USER INTERFACE ARTIST-C Unavailable Unavailabl e Anisa, Reginah W Lucy USER INTERFACE ARTIST-C Unavailable Unavailabl e Anisa, Reginah W Lucy USER INTERFACE ARTIST-C Unavailable Unavailabl e Anisa, Reginah W Lucy USER INTERFACE ARTIST-C Unavailable Unavailabl e Anisa, Reginah W Lucy USER INTERFACE ARTIST-C Unavailable Unavailabl e Anisa, Reginah W Lucy USER INTERFACE ARTIST-C Unavailable Unavailabl e Anisa, Reginah W Lucy USER INTERFACE ARTIST-C Unavailable Unavailabl e Anisa, Reginah W Lucy USER INTERFACE ARTIST-C Unavailable Unavailabl e Anisa, Reginah W Lucy USER INTERFACE ARTIST-C Unavailable Unavailabl e Anisa, Reginah W Lucy USER INTERFACE ARTIST-C Unavailable Unavailabl e Anisa, Reginah W Lucy USER INTERFACE ARTIST-C Unavailable Unavailabl e Anisa, Reginah W Lucy USER INTERFACE ARTIST-C Unavailable Unavailabl e Anisa, Reginah W Lucy USER INTERFACE ARTIST-C Unavailable Unavailabl e Anisa, Reginah W Lucy USER INTERFACE ARTIST-C Unavailable Unavailabl e Anisa, Regsheryl W Lucy USER INTERFACE ARTIST-C Unavailable Unavailabl e Anisa, Reginamontez W Lucy USER INTERFACE ARTIST-C Unavailable Unavailabl e Anisa, Reginamontez W Lucy USER INTERFACE ARTIST-C Unavailable Unavailabl e Anisa, Reginamontez W Lucy USER INTERFACE ARTIST-C Unavailable Unavailabl e Anisa, Reginamontez W Lucy USER INTERFACE ARTIST-C Unavailable Unavailabl e Anisa, Reginamontez W Lucy USER INTERFACE ARTIST-C Unavailable Unavailabl e Anisa, Reginamontez W Lucy USER INTERFACE ARTIST-C Unavailable Unavailabl e Anisa, Reginamontez W Lucy USER INTERFACE ARTIST-C Unavailable Unavailabl e Anisa, Reginamontez W Lucy USER INTERFACE ARTIST-C Unavailable Unavailabl e Anisa, Andreia W Lucy USER INTERFACE ARTIST-C Unavailable Unavailabl e Anisa, Regsheryl W Lucy USER INTERFACE ARTIST-C Unavailable Unavailabl e Anisa, Andreia W Lucy USER INTERFACE ARTIST-C Unavailable Unavailabl e Anisa, Reginamontez W Lucy USER INTERFACE ARTIST-C Unavailable Unavailabl e Anisa, Reginamontez W Lucy USER INTERFACE ARTIST-C Unavailable Unavailabl e Anisa, Andreia W Lucy USER INTERFACE ARTIST-C Unavailable Unavailabl e Anisa, Andreia W Lucy USER INTERFACE ARTIST-C Unavailable Unavailabl e Anisa, Regsheryl W Lucy USER INTERFACE ARTIST-C Unavailable Unavailabl e Cece Liu MD Unavailable Unavailable Cece Liu MD Unavailable Unavailable Cece Liu MD Unavailable Unavailable Cece Liu MD Unavailable Unavailable Cece Liu MD Unavailable Unavailable Cece Liu MD Unavailable Unavailable Cece Liu MD Unavailable Unavailable Cece Liu MD Unavailable Unavailable Cece Liu MD Unavailable Unavailable Cece Liu MD Unavailable Unavailable Cece Liu MD Unavailable Unavailable Cece Liu MD Unavailable Unavailable Cece Liu MD Unavailable Unavailable Dombek-Lang, Cece Jasso MD Unavailable Unavailable Dombek-Lang, Cece Jasso MD Unavailable Unavailable Dombek-Lang, Cece Jasso MD Unavailable Unavailable Dombek-Lang, Cece Jasso MD Unavailable Unavailable Dombek-Lang, Cece Jasso MD Unavailable Unavailable Dombek-Lang, Cece Jasso MD Unavailable Unavailable Dombek-Lang, Cece Jasso MD Unavailable Unavailable Dombek-Lang, Cece Jasso MD Unavailable Unavailable Dombek-Lang, Cece Jasso MD Unavailable Unavailable Dombek-Lang, Cece Jasso MD Unavailable Unavailable Dombek-Lang, Cece Jasso MD Unavailable Unavailable Dombek-Lang, Cece Jasso MD Unavailable Unavailable Dombek-Lang, Cece Jasso MD Unavailable Unavailable Dombek-Lang, Cece Jasso MD Unavailable Unavailable Dombek-Lang, Cece Jasso MD Unavailable Unavailable Dombek-Lang, Cece Jasso MD Unavailable Unavailable Kamleshbek-Lang, Cece Jasso MD Unavailable Unavailable Dombek-Lang, Cece Jasso MD Unavailable Unavailable Dombek-Lang, Cece Jasso MD Unavailable Unavailable Dombek-Lang, Cece Jasso MD Unavailable Unavailable Dombek-Lang, Cece Jasso MD Unavailable Unavailable Kamleshbek-LangCece MD Unavailable Unavailable Dombek-Lang, Cece Jasso MD Unavailable Unavailable Dombek-Lang, Cece Jasso MD Unavailable Unavailable BRITTANEY, SALIMA KATHIE PA Unavailable Unavailable BRITTANEY, SALIMA KATHIE PA Unavailable Unavailable BRITTANEY, SALIMA KATHIE PA Unavailable Unavailable BRITTANEY, SALIMA KATHIE PA Unavailable Unavailable BRITTANEY, SALIMA KATHIE PA Unavailable Unavailable BRITTANEY, SALIMA KATHIE PA Unavailable Unavailable BRITTANEY, SALIMA KATHIE PA Unavailable Unavailable BRITTANEY, SALIMA KATHIE PA Unavailable Unavailable BRITTANEY, SALIMA KATHIE PA Unavailable Unavailable BRITTANEY, SALIMA KATHIE PA Unavailable Unavailable BRITTANEY, SALIMA KATIHE PA Unavailable Unavailable BRITTANEY, SALIMA KATHIE PA Unavailable Unavailable BRITTANEY, SALIMA KATHIE PA Unavailable Unavailable BRITTANEY, SALIMA KATHIE PA Unavailable Unavailable BRITTANEY, SALIMA KATHIE PA Unavailable Unavailable BRITTANEY, SALIMA KATHIE PA Unavailable Unavailable BRITTANEY, SALIMA KATHIE PA Unavailable Unavailable BRITTANEY, SALIMA KATHIE PA Unavailable Unavailable BRITTANEY, SALIMA KATHIE PA Unavailable Unavailable BRITTANEY, SALIMA KATHIE PA Unavailable Unavailable BRITTANEY, SALIMA KATHIE PA Unavailable Unavailable REINDL, TALIA MACKEY Unavailable Unavailable REINDL, TALIA MACKEY Unavailable Unavailable REINDL, TALIA MACKEY Unavailable Unavailable REINDL, TALIA MACKEY Unavailable Unavailable REINDL, TALIA MACKEY Unavailable Unavailable REINDL, TALIA MACKEY Unavailable Unavailable REINDL, TALIA MACKEY Unavailable Unavailable REINDL, TALIA MACKEY Unavailable Unavailable REINDL, TALIA MACKEY Unavailable Unavailable REINDL, TALIA MACKEY Unavailable Unavailable REINDL, TALIA MACKEY Unavailable Unavailable REINDL, TALIA MACKEY Unavailable Unavailable REINDL, ATLIA MACKEY Unavailable Unavailable REINDL, TALIA MACKEY Unavailable Unavailable REINDL, TALIA MACKEY Unavailable Unavailable REINDL, TALIA MACKEY Unavailable Unavailable REINDL, TALIA MACKEY Unavailable Unavailable REINDL, TALIA MACKEY Unavailable Unavailable REINDL, TALIA MACKEY Unavailable Unavailable REINDL, TALIA MACKEY Unavailable Unavailable REINDL, TALIA MACKEY Unavailable Unavailable REINDL, TALIA MACKEY Unavailable Unavailable REINDL, TALIA MACKEY Unavailable Unavailable REINDL, TALIA MACKEY Unavailable Unavailable REINDL, TALIA MACKEY Unavailable Unavailable REINDL, TALIA MACKEY Unavailable Unavailable REINDL, TALIA MACKEY Unavailable Unavailable REINDL, TALIA MACKEY Unavailable Unavailable REINDL, TALIA MACKEY Unavailable Unavailable REINDL, TALIA MACKEY Unavailable Unavailable REINDL, TALIA MACKEY Unavailable Unavailable REINDL, TALIA MACKEY Unavailable Unavailable REINDL, TALIA MACKEY Unavailable Unavailable REINDL, TALIA MACKEY Unavailable Unavailable REINDL, TALIA MACKEY Unavailable Unavailable REINDL, TALIA MACKEY Unavailable Unavailable REINDL, TALIA MACKEY Unavailable Unavailable REINDL, TALIA MACKEY Unavailable Unavailable REINDL, TALIA MACKEY Unavailable Unavailable REINDL, TALIA MACKEY Unavailable Unavailable REINDL, TALIA MACKEY Unavailable Unavailable REINDL, TALIA MACKEY Unavailable Unavailable REINDL, TALIA MACKEY Unavailable Unavailable REINDL, TALIA MACKEY Unavailable Unavailable Rydberg, Ruba PA Unavailable Unavailable Rydberg, Ruba PA Unavailable Unavailable Rydberg, Ruba PA Unavailable Unavailable Rydberg, Ruba PA Unavailable Unavailable Rydberg, Ruba PA Unavailable Unavailable Rydberg, Ruba PA Unavailable Unavailable Rydberg, Ruba PA Unavailable Unavailable Rydberg, Ruba PA Unavailable Unavailable Rydberg, Ruba PA Unavailable Unavailable Rydberg, Ruba PA Unavailable Unavailable Rydberg, Ruba PA Unavailable Unavailable Rydberg, Ruba PA Unavailable Unavailable Rydberg, Ruba PA Unavailable Unavailable Rydberg, Ruba PA Unavailable Unavailable Rydberg, Ruba PA Unavailable Unavailable Rydberg, Ruba PA Unavailable Unavailable Rydberg, Ruba PA Unavailable Unavailable Rydberg, Ruba PA Unavailable Unavailable Rydberg, Ruba PA Unavailable Unavailable Rydberg, Ruba PA Unavailable Unavailable Rydberg, Ruba PA Unavailable Unavailable Rydberg, Ruba PA Unavailable Unavailable Re-disclosure Warning The records that you are about to access may contain information from federally-assisted alcohol or drug abuse programs. If such information is present, then the following federally mandated warning applies: This information has been disclosed to you from records protected by federal confidentiality rules (42 CFR part 2). The federal rules prohibit you from making any further disclosure of this information unless further disclosure is expressly permitted by the written consent of the person to whom it pertains or as otherwise permitted by 42 CFR part 2. A general authorization for the release of medical or other information is NOT sufficient for this purpose. The Federal rules restrict any use of the information to criminally investigate or prosecute any alcohol or drug abuse patient.The records that you are about to access may contain highly sensitive health information, the redisclosure of which is protected by Article 27-F of the [facility] Public Health law. If you continue you may have access to information: Regarding HIV / AIDS; Provided by facilities licensed or operated by the [facility] Office of Mental Health; or Provided by the [facility] Office for People With Developmental Disabilities. If such information is present, then the following [facility] mandated warning applies: This information has been disclosed to you from confidential records which are protected by state law. State law prohibits you from making any further disclosure of this information without the specific written consent of the person to whom it pertains, or as otherwise permitted by law. Any unauthorized further disclosure in violation of state law may result in a fine or halfway sentence or both. A general authorization for the release of medical or other information is NOT sufficient authorization for further disc losure. Allergies and Adverse Reactions Type Description Substance Reaction Status Data Source(s ) seasonal seasonal seasonal Unknown Active eCW1 ([facility]) seasonal seasonal seasonal Unknown Active eCW1 ([facility]) seasonal seasonal seasonal Unknown Active eCW1 ([facility]) Encounters Encounter Providers Location Date Indications Data Source(s ) Outpatient Attender: TALIA Ritter/Keith/Bk/Sofiya pineda 05/18/2020 09:30:00 AM EST [facility] ([facility]) Outpatient Attender: Lucy Lange USER INTERFACE ARTIST-CReferrer: Vincent [facility]-CLN2 05/13/2020 04:20:00 PM EST - 05/13/2020 04:20:00 PM [facility] Unknown [address] [facility] [id number] 05/13/2020 12:00:00 AM EST eCW1 ([facility]) Outpatient [address] [facility] [id number] 04/05/2020 12:00:00 AM EST eCW1 ([facility]) Unknown [address] [facility] [id number] 04/05/2020 12:00:00 AM EST eCW1 ([facility]) Unknown [address] [facility] [id number] 03/23/2020 12:00:00 AM EDT eCW1 ([facility]) Outpatient [address] [facility] [id number] 03/04/2020 12:00:00 AM EDT eCW1 ([facility]) [facility] [address] [facility] [id number] 01/26/2020 12:00:00 AM EDT eCW1 ([facility]) Outpatient Attender: Ruba HURLEY 01/12/2020 11:49:00 AM [facility] [address] [place] [address] 11/06/2019 12:00:00 AM EDT eCW1 ([facility]) [facility] [address] [facility] [id number] 10/20/2019 12:00:00 AM EDT eCW1 ([facility]) [facility] [address] [facility] [id number] 09/11/2019 12:00:00 AM EDT eCW1 ([facility]) [facility] Dermatology [address] [place] [address] 09/05/2019 12:00:00 AM EDT eCW1 ([facility]) [facility] Dermatology Center [address] [place] [phone] 08/21/2019 12:00:00 AM EDT eCW1 ([facility]) [facility] [address] [place] [phone] 07/24/2019 12:00:00 AM EST eCW1 ([facility]) [facility] [address] [place] [phone] 07/23/2019 12:00:00 AM EST eCW1 ([facility]) [facility] Urology Center [address] [place] [phone] 06/27/2019 12:00:00 AM EST eCW1 ([facility]) [facility] Dermatology [address] [place] [phone] 06/12/2019 12:00:00 AM EST eCW1 ([facility]) [facility] [address] [place] [phone] 06/11/2019 12:00:00 AM EST [facility] Emergency Attender: MIS HURLEY EMERGENCY ROOM-ER 01:39:00 PM EDT - 12/13/2017 05:12:00 PM [facility] Emergency Attender: KATHIE Brysonerrer: Lamonte Xiong DO EMERGENCY ROOM-ER 02/28/2017 06:05:00 PM EDT - 02/02/2017 05:10:00 PM [facility] Emergency Attender: JORDIN Richer: Elliot james DO 02/21/2017 01:12:00 AM EDT - 02/19/2017 01:04:00 PM [facility]: Louisa PATTERSONeferrer: Elliot taylor DO 09/02/2016 04:47:00 PM EDT - 09/02/2016 06[facility] Medication Brand Name Start Date Product Form Dose Route Admi nistrative Instructions Pharmacy Instructions Status Indications Reaction Description Data Source(s) Suprep Bowel Prep Kit Suprep Bowel Prep Kit 05/18/2020 12:00:00 AM EST active [facility] ([facility], ) 90 mcg/actuation 05/14/2020 12:00:00 AM EST HFA aerosol inha ler 8 INHALE ONE PUFF BY MOUTH EVERY 4 HOURS NEEDED INHALE ONE PUFF BY MOUTH EVERY 4 HOURS A S NEEDED SOLD: 05/14/2020 [facility] 500 mg 01/30/2020 12:00:00 AM EDT capsule 15 TAKE ONE CAPSULE BY MOUTH EVERY 8 HOURS TAKE ONE CAPSULE BY MOUTH EVERY 8 HOURS SOLD: 02/01/2020 [facility] 0.12 % 01/27/2020 12:00:00 AM EDT mouthwash 473 RINSE WITH 1 CAPFUL BY MOUTH THREE TIMES A DAY BEGINNING TOMORR RINSE WITH 1 CAPFUL BY MOUTH THREE TIMES A DAY BEGINNING ORR SOLD: 03/14/2020 [facility] 600 mg 01/27/2020 12:00:00 AM EDT tablet 24 TAKE ONE TABLET BY MOUTH FOUR TIMES A DAY, NEEDED TAKE ONE TABLET BY MOUTH FOUR TIMES A DAY, NEEDED SOLD: 01/27/2020 [facility] 0.12 % 01/27/2020 12:00:00 AM EDT mouthwash 473 RINSE WITH 1 CAPFUL BY MOUTH THREE TIMES A DAY BEGINNING RINSE WITH 1 CAPFUL BY MOUTH THREE TIMES A DAY BEGINNING SOLD: 04/18/2020 [facility] 0.12 % 01/27/2020 12:00:00 AM EDT mouthwash 473 RINSE WITH 1 CAPFUL BY MOUTH THREE TIMES A DAY BEGINNING TOM RINSE WITH 1 CAPFUL BY MOUTH THREE TIMES A DAY BEGINNING SOLD: 01/27/2020 [facility] 5 mg 01/26/2020 12:00:00 AM EDT tablet 90 TAKE ONE TABLET BY MOUTH EVERY DAY TAKE ONE TABLET BY MOUTH EVERY DAY SOLD: 01/27/2020 [facility] 600 mg 01/26/2020 12:00:00 AM EDT tablet 180 TAKE ONE TABLET BY MOUTH TWICE A DAY TAKE ONE TABLET BY MOUTH TWICE A DAY SOLD: 01/27/2020 [facility] 500 mg 01/21/2020 12:00:00 AM EDT capsule 4 TAKE FOUR CAPSULES BY MOUTH 1 HOUR PRIOR TO DENTAL PROCEDURE TAKE FOUR CAPSULES BY MOUTH 1 HOUR PRIOR TO DENTAL PROCEDURE SOLD: 01/22/2020 [facility] 0.1 % 11/07/2019 12:00:00 AM EDT ointment 15 APPLY TWO TIMES A DAY TO AREAS ON BODY WITH PINK SCALY RASH APPLY TWO TIMES A DAY TO AREAS ON BODY W ITH PINK SCALY RASH SOLD: 11/08/2019 [facility] Insurance Providers Payer name Policy type / Coverage type Policy ID Covered green party ID Covered green party's relationship to eid Policy Eid Plan Information [employer] [id number] SP [id number] [facility] [employer] [facility] MCD[employer]MO [id number] SP [id number] [facility] [employer] MCD[employer]MO [id number] SP [id number] [facility] [employer] MCD[employer]MO [id number] SP [id number] [facility]) O [id number] S [id number] [facility] MEDICAID [id number] S [id number] [facility] [employer] [facility] MCDHMO [id number] SP [id number] [facility] [employer] [facility] MCDHMO [id number] SP [id number] [facility] COMM[employer] MCDHMO [id number] SP [id number] [facility] MEDICAID [id number] S [id number] [facility] MEDICAID [id number] S [id number] MEDICAID [id number] S [id number] [facility] MEDICAID [id number] S [id number] [facility] MEDICAID [id number] S [id number] [facility]-Medicaid [id number] [facility]-Medicaid [id number] [facility]-Medicaid [id number] [facility]-Medicaid [id number] ANSI-Medicaid [id number] ANSI-Medicaid [id number] ANSI-Medicaid [id number] ANSI-Medicaid [id number] ANSI-Medicaid [id number] ANSI-Medicaid [id number] ANSI-Medicaid [id number] ANSI-Medicaid [id number] ANSI-Medicaid [id number] ANSI-Medicaid [id number] ANSI-Medicaid [id number] ANSI-Medicaid [id number] [facility] [id number] SP [id number] ANSI-Medicaid [id number] ANSI-Medicaid [id number] ANSI-Medicaid [id number] [facility] [id number] SP [id number] ANSI-Medicaid [id number] ANSI-Medicaid [id number] ANSI-Medicaid [id number] ANSI-Medicaid [id number] ANSI-Medicaid [id number] ANSI-Medicaid [id number] ANSI-Medicaid [id number] ANSI-Medicaid [id number] ANSI-Medicaid [id number] ANSI-Medicaid [id number] ANSI-Medicaid [id number] ANSI-Medicaid [id number] [employer] MCDO [id number] SP [id number] ANSI-Medicaid [id number] [employer] [id number] S [id number] [employer] [id number] S [id number] MEDICAID [id number] S [id number] [facility] MEDICAID [facility] [place] [id number] S [id number] MEDICAID [id number] SP [id number] [employer] [id number] S [id number] SELF PAY SP [id number] S [id number] [employer] S[employer] [id number] S [id number] [employer] [id number] SP [id number] HMO BLUE [id number] SP [id number] SELF PAY UNAVAILABLE SP UNAVAILA BLE [employer] PPO 2 [id number] SELF PAY 2 UNAVAILABLE 1 UNAVAILA BLE Problems, Conditions, and Diagnoses Code Display Name Description Problem Type Effective Dates Data Source(s) K76.0 [id number] Hepatic steatosis Problem 04/05/2020 12:00:0 0 AM EST eCW1 ([facility]) L57.0 [id number] Actinic keratoses Problem 11/06/2019 12:00:0 0 AM EDT eCW1 ([facility]) L57.8 [id number] Allergic contact pascual matitis due to photocontact other than sunburn, current Problem 11/06/2019 12:00:00 AM EDT eCW1 [facility] D23.9 [id number] Dermatofibroma Problem 11/06/2019 12:00:00 A M EDT eCW1 ([facility]) E11.29 [id number] 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 Problem 10/20/2019 12:00:00 AM EDT eCW1 ([facility]) R80.9 861520803 Microalbuminuria Problem 10/20/2019 12:00:00 AM EDT eCW1 ([facility]) E11.40 80049171 Type 2 diabetes mumtaz itus with diabetic neuropathy, without long- term current use of insulin Problem 10/20/2019 12:00:00 AM EDT eCW1 ([facility]) E11.40 35134746 Type 2 diabetes mumtaz itus with diabetic neuropathy, without long- term current use of insulin Problem 10/20/2019 12:00:00 AM EDT eCW1 ([facility]) E11.29 [id number] 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 Problem 10/20/2019 12:00:00 AM EDT eCW1 ([facility]) R80.9 416056023 Microalbuminuria Problem 10/20/2019 12:00:00 AM EDT eCW1 ([facility]) N48.6 Induratio penis plastica Peyronie disease Problem 06/27/2019 12:00:00 AM EST eCW1 ([facility]) N48.6 Induratio penis plastica Peyronie disease Problem 06/27/2019 12:00:00 AM EST eCW1 ([facility]) N48.89 75943208 Penile curvature, acquired Problem 0 12:00:00 AM EST eCW1 ([facility]) I11.9 20100438 Hypertensive heart disease without heart failure Problem 06/11/2019 12:00:00 AM EST eCW1 ([facility]) M25.552 94950079 Pain in left hip Problem 06/11/2019 12:00:00 AM EST eCW1 ([facility]) M25.551 98730065 Pain in right hip Problem 06/11/2019 12:00:0 0 AM EST eCW1 ([facility]) I11.9 36914902 Hypertensive heart disease without heart failure Problem 06/11/2019 12:00:00 AM EST eCW1 ([facility]) M25.551 22288911 Pain in right hip Problem 06/11/2019 12:00:0 0 AM EST eCW1 ([facility]) N48.89 44639964 Penile curvature, acquired Problem 0 12:00:00 AM EST eCW1 ([facility]) R06.2 Wheezing WHEEZING Diagnosis 05/13/2020 04:20:00 PM [facility] B34.8 Other viral infections of unspecified si te OTHER VIRAL INFECTIONS OF UNSPECIFIED SITE Diagnosis 05/13/2020 04:20:00 PM EST [facility] J06.9 Acute upper respiratory infection, unspe cified ACUTE UPPER RESPIRATORY INFECTION, UNSPECIFIED Diagnosis 05/13/2020 04:20:00 PM EST [facility] K14.8 Other diseases of tongue OTHER DISEASES OF TONGUE Diag nosis 01/12/2020 11:49:00 AM [facility] Results ID Date Data Source [id number] 07/21/2020 10:05:00 AM EST [facility] Name Value Range Interpretation Code Description Data Taylor rce(s) Supporting Document(s) SARS coronavirus 2 RNA Not Detected [facility] [place] This lab was ordered by [facility] and reported by [facility]. ID Date Data Source [id number] 05/13/2020 07:44:00 PM EST [facility] CHEST, FRONTAL AND LATERAL DATE OF EXAMI NATION: 05/13/2020 17:15 EST CHEST 2 VIEWS INDICATION: Cough COMPARISON: 02/02/2017 TECHNIQUE: Frontal and lateral views of the chest were obtained. FINDINGS: The chest wall and mediastinal structures are unremarkable. There isno pleural disease. The lungs are clear. IMPRESSION: No acute pulmonary disease Electronically signed in PS360 by: Dano Saleh M.D. 05/13/2020 19:38 EST Name Value Range Interpretation Code Description Data Taylor rce(s) Supporting Document(s) ID Date Data Source [id number] 05/13/2020 04:53:00 PM EST [facility] Name Value Range Interpretation Code Description Data Taylor rce(s) Supporting Document(s) SARS COV2 TRP [facility] This lab was ordered by [facility] and reported by [facility]. ID Date Data Source [id number] 05/13/2020 05:50:00 PM EST [facility] Name Value Range Interpretation Code Description Data Taylor rce(s) Supporting Document(s) Adenovirus Not Detected Detected Not [facility] Coronavirus 229E Not Detected Detected Not [facility] Coronavirus HKU1 Not Detected Detected Not [facility] Coronavirus NL63 Not Detected Detected Not [facility] Coronavirus OC43 Not Detected Detected Not [facility] Sars Cov 2 Not Detected Detected Not [facility] Metapneumovirus Not Detected Detected [facility] Human Rhinovirus DETECTED Detected Not [facility] Influenza A Not Detected Detected [facility] Influenza B Not Detected Detected [facility] Parainfluenza Virus 1 Not Detected Detected [facility] Parainfluenza Virus 2 Not Detected Detected Not [facility] Parainfluenza Virus 3 Not Detected Detected Not [facility] Parainfluenza Virus 4 Not Detected Detected Not [facility] Respiratory Syncytial Virus Not Detected Detected Not [facility] Bordetella parapertus ([id number]) Not Detected Detected [facility] Bordetella pertussis (ptxP) Not Detected Detected Not [facility] Chlamydia pneumoniae Not Detected Detected [facility] Mycoplasma pneumoniae Not Detected Detected [facility] The Above results have been determined b y using the gokitArray system.FilmArray is an automated in vitro diagnostic system thatutilizes nested multiplex Polymerase Chain Reaction (PCR)and high-resolution melting analysis to detect and identifymultiple nucleic acid targets from clinical specimens. ID Date Data Source TSH 03/08/2020 12:35:54 PM EDT eCW1 ([facility]) Name Value Range Interpretation Code Description Data Taylor rce(s) Supporting Document(s) 1.810 THYROID STIMULATING HORMONE eC W1 ([facility]) ID Date Data Source PSA SCREENING 03/08/2020 12:35:54 PM EDT eCW1 ([facility]) Name Value Range Interpretation Code Description Data Taylor rce(s) Supporting Document(s) 0.41 PSA SCREENING eCW1 ([facility]) ID Date Data Source [id number] [id number] 03/08/2020 12:35:54 PM EDT eCW1 ([facility]) Name Value Range Interpretation Code Description Data Taylor rce(s) Supporting Document(s) 195 GAMMA GLUTAMYLTRANSPEPTIDASE e CW1 ([facility]) ID Date Data Source CBC with Differential 03/08/2020 12:35:54 PM EDT eCW1 ([facility]) Name Value Range Interpretation Code Description Data Taylor rce(s) Supporting Document(s) 6.8 WHITE BLOOD COUNT eCW1 ([facility]) 15.6 HEMOGLOBIN eCW1 ([facility]) 4.47 RED BLOOD COUNT eCW1 ([facility]) 45.6 HEMATOCRIT eCW1 ([facility]) 10.8 RED CELL DISTRIBUTION WIDTH eC W1 ([facility]) 102.0 MEAN CORPUSCULAR VOLUME eCW1 ( [facility]) 34.9 MEAN CORPUSCULAR HEMOGLOBIN eC W1 ([facility]) 34.2 MEAN CORPUSCULAR HGB CONC eCW1 ([facility]) 23.7 LYMPH % eCW1 ([facility]) 281 PLATELET COUNT, AUTOMATED eCW1 ([facility]) 68.0 NEUTROPHILS % eCW1 ([facility]) 7.3 MONO % eCW1 ([facility]) 0.4 EOS % eCW1 ([facility]) 1.6 LYMPH # eCW1 ([facility]) 0.3 BASO % eCW1 ([facility]) 4.6 NEUTROPHILS # eCW1 ([facility]) 0.0 EOS # eCW1 ([facility]) 0.5 MONO # eCW1 ([facility]) 0.0 BASO # eCW1 ([facility]) Procedure Social History Code Duration Value Status Description Data Source(s ) Smoking 04/05/2020 12:00:00 AM EST Never Smoker completed Never S moker eCW1 ([facility]) Smoking 04/05/2020 12:00:00 AM EST Never Smoker completed Never S moker eCW1 ([facility]) Smoking 04/05/2020 12:00:00 AM EST Never Smoker completed Never S moker eCW1 ([facility]) Smoking 03/04/2020 12:00:00 AM EDT Never Smoker completed Never S moker eCW1 ([facility]) Smoking 03/04/2020 12:00:00 AM EDT Never Smoker completed Never S moker eCW1 ([facility]) Vital Signs ID Date Data Source UNK Name Value Range Interpretation Code Description Data Source(s) Body surface area Derived from formula 2.37 m2 2.37 m2 [facility] ([facility]) Body weight 114.307 kg 114.307 kg [facility]) [facility] 184 [lb_av] 184 [facility]_av[facility] Body mass index (BMI) [Ratio] 33.2 kg/m2 33.2 k g/m2 [facility] ([facility]) Body weight 252.00 [lb_av] 252.00 [lb_av] [facility] Body height 73 [in_i] 73 [in_i] [facility] ([facility]) 6'1" Diastolic blood pressure 140 mm[Hg] 140 mm[Hg] MEDENT ([facility], ) Systolic blood pressure 200 mm[Hg] 200 mm[Hg] M EDENT ([facility], ) Diastolic blood pressure 81 mm[Hg] 81 mm[Hg] eCW1 ([facility]) Systolic blood pressure 134 mm[Hg] 134 mm[Hg] e CW1 ([facility]) Body temperature 98.7 [degF] 98.7 [degF] eCW1 ( [facility]) Respiratory rate 18 /min 18 /min eCW1 ([facility]) Heart rate 80 /min 80 /min eCW1 ([facility]) Body mass index (BMI) [Ratio] 33.90 kg/m2 33.90 kg/m2 eCW1 ([facility]) Body height [in_i] eCW1 ([facility]) Body weight [lb_av] eCW1 ([facility]) Body temperature 97.1 [degF] 97.1 [degF] eCW1 ( [facility]) Respiratory rate 18 /min 18 /min eCW1 ([facility]) Heart rate 85 /min 85 /min eCW1 ([facility]) Body mass index (BMI) [Ratio] 33.50 kg/m2 33.50 kg/m2 eCW1 ([facility]) Body height [in_i] eCW1 ([facility]) Body weight 247 [lb_av] 247 [lb_av] eCW1 ([facility]) Diastolic blood pressure 83 mm[Hg] 83 mm[Hg] eCW1 ([facility]) Systolic blood pressure 120 mm[Hg] 120 mm[Hg] e CW1 ([facility]) Diastolic blood pressure 80 mm[Hg] 80 mm[Hg] eCW1 ([facility]) Systolic blood pressure 138 mm[Hg] 138 mm[Hg] e CW1 ([facility]) Body temperature 97.8 [degF] 97.8 [degF] eCW1 ( [facility]) Respiratory rate 20 /min 20 /min eCW1 ([facility]) Heart rate 75 /min 75 /min eCW1 ([facility]) Body mass index (BMI) [Ratio] 38.11 kg/m2 38.11 kg/m2 eCW1 ([facility]) Body height [in_us] eCW1 ([facility]) Body weight Measured 281 [lb_av] 281 [lb_av] eC W1 ([facility]) Diastolic blood pressure 97 mm[Hg] 97 mm[Hg] eCW1 ([facility]) Systolic blood pressure 146 mm[Hg] 146 mm[Hg] e CW1 ([facility]) Body temperature 98 [degF] 98 [degF] eCW1 ([facility]) Respiratory rate 18 /min 18 /min eCW1 ([facility]) Heart rate 85 /min 85 /min eCW1 ([facility]) Body mass index (BMI) [Ratio] 38.24 kg/m2 38.24 kg/m2 eCW1 ([facility]) Body height [in_us] eCW1 ([facility]) Body weight Measured 282 [lb_av] 282 [lb_av] eC W1 ([facility]) Diastolic blood pressure 86 mm[Hg] 86 mm[Hg] eCW1 ([facility]) Systolic blood pressure 144 mm[Hg] 144 mm[Hg] e CW1 ([facility]) Body temperature 98.4 [degF] 98.4 [degF] eCW1 ( [facility]) Respiratory rate 18 /min 18 /min eCW1 ([facility]) Heart rate 87 /min 87 /min eCW1 ([facility]) Body mass index (BMI) [Ratio] 38.51 kg/m2 38.51 kg/m2 eCW1 ([facility]) Body height [in_us] eCW1 ([facility]) Body weight Measured 284 [lb_av] 284 [lb_av] eC W1 ([facility]) Diastolic blood pressure 97 mm[Hg] 97 mm[Hg] eCW1 ([facility]) Systolic blood pressure 144 mm[Hg] 144 mm[Hg] e CW1 ([facility]) Body temperature 98 [degF] 98 [degF] eCW1 ([facility]) Respiratory rate 18 /min 18 /min eCW1 ([facility]) Heart rate 86 /min 86 /min eCW1 ([facility]) Body mass index (BMI) [Ratio] 38.92 kg/m2 38.92 kg/m2 eCW1 ([facility]) Body height [in_us] eCW1 ([facility]) Body weight Measured 287 [lb_av] 287 [lb_av] eC W1 ([facility])
[2020-07-26] MEDS ORDERED: propofoL 200 MG/20 ML VIAL As Ordered ONE ×2 (12:13→12:35)
--- NOTE | 2020-07-26 12:18 | ROOR ---
Patient Name: Bryan Zuñiga Procedure Date: 07/26/2020 12:04 PM Date of : 1960 Age: 59 Room: [facility] Gender: Male Note Status: Finalized Procedure: Upper GI endoscopy Indications: Weight loss Providers: Dean RAMOS MD Referring MD: Chantell HOLLIS DO Requesting Provider: Medicines: Monitored Anesthesia Care Complications: No immediate complications. Procedure: Pre-Anesthesia Assessment: - The heart rate, respiratory rate, oxygen saturations, blood pressure, adequacy of pulmonary ventilation, and response to care were monitored throughout the procedure. The Endoscope was introduced through the mouth, and advanced to the second part of duodenum. The upper GI endoscopy was accomplished without difficulty. The patient tolerated the procedure well. Findings: The esophagus was normal. The stomach was normal. The examined duodenum was normal. Impression: - Normal esophagus. - Normal stomach. - Normal examined duodenum. - No specimens collected. Recommendation: - Observe patient's clinical course. Procedure Code(s): --- Professional --- 06173, Esophagogastroduodenoscopy, flexible, transoral; diagnostic, including collection of specimen(s) by brushing or washing, when performed (separate procedure) Diagnosis Code(s): --- Professional --- R63.4, Abnormal weight loss CPT copyright 2019 [employer]. All rights reserved. The codes documented in this report are preliminary and upon retail property manager review may be revised to meet current compliance requirements. Dean Ramos MD Dean RAMOS MD 07/26/2020 12:18:23 PM Electronically signed by Dean RAMOS MD Number of Addenda: 0 Note Initiated On: 07/26/2020 12:04 PM Estimated Blood Loss: Estimated blood loss: none.
--- NOTE | 2020-07-26 13:01 | ROOR ---
Patient Name: Bryan Zuñiga Procedure Date: 07/26/2020 12:07 PM Date of : 1960 Age: 59 Room: [facility] Gender: Male Note Status: Finalized Procedure: Colonoscopy Indications: Weight loss Providers: Dean RAMOS MD Referring MD: Chantell HOLLIS DO Requesting Provider: Medicines: Monitored Anesthesia Care Complications: No immediate complications. Procedure: Pre-Anesthesia Assessment: - The heart rate, respiratory rate, oxygen saturations, blood pressure, adequacy of pulmonary ventilation, and response to care were monitored throughout the procedure. The Colonoscope was introduced through the anus and advanced to 10 cm into the ileum. The colonoscopy was performed without difficulty. The patient tolerated the procedure well. The quality of the bowel preparation was good. Findings: The perianal and digital rectal examinations were normal. Three sessile polyps were found in the ascending colon and cecum. The polyps were 4 to 6 mm in size. These polyps were removed with a hot snare. Resection and retrieval were complete. Three sessile polyps were found in the splenic flexure and distal transverse colon. The polyps were 4 to 6 mm in size. These polyps were removed with a hot snare. Resection and retrieval were complete. Seven pedunculated and sessile polyps were found in the sigmoid colon. The polyps were 5 to 10 mm in size. These polyps were removed with a hot snare. Resection and retrieval were complete. A 5 mm polyp was found in the rectum. The polyp was sessile. The polyp was removed with a hot snare. Resection and retrieval were complete. Internal hemorrhoids were found during retroflexion. The hemorrhoids were moderate. The terminal ileum appeared normal. Impression: - Three 4 to 6 mm polyps in the ascending colon and in the cecum, removed with a hot snare. Resected and retrieved. - Three 4 to 6 mm polyps at the splenic flexure and in the distal transverse colon, removed with a hot snare. Resected and retrieved. - Seven 5 to 10 mm polyps in the sigmoid colon, removed with a hot snare. Resected and retrieved. - One 5 mm polyp in the rectum, removed with a hot snare. Resected and retrieved. - Internal hemorrhoids. - The examined portion of the ileum was normal. Recommendation: - Repeat colonoscopy in 1 year for surveillance of multiple adenomas. - No ibuprofen, naproxen, or other non-steroidal anti-inflammatory drugs for 10 days after polyp removal. Procedure Code(s): --- Professional --- 47325, Colonoscopy, flexible; with removal of tumor(s), polyp(s), or other lesion(s) by snare technique Diagnosis Code(s): --- Professional --- R63.4, Abnormal weight loss K64.8, Other hemorrhoids K62.1, Rectal polyp K63.5, Polyp of colon CPT copyright 2019 [employer]. All rights reserved. The codes documented in this report are preliminary and upon surgical coder review may be revised to meet current compliance requirements. Dean Ramos MD Dean RAMOS MD 07/26/2020 1:00:42 PM Electronically signed by Dean RAMOS MD Number of Addenda: 0 Note Initiated On: 07/26/2020 12:07 PM Estimated Blood Loss: Estimated blood loss: none.
[2020-07-26 13:15] VITALS: BP 138/90
== END 2020-07-26 13:25 | disposition home or self-care (01) ==
LOC: M OPP 10:57
PROVIDERS: ATTEND Internal Medicine Gastroenterology
DX: R63.4 Abnormal weight loss (principal); K63.5 Polyp of colon; K64.8 Other hemorrhoids; I10 Essential (primary) hypertension; E78.5 Hyperlipidemia, unspecified; E11.9 Type 2 diabetes mellitus without complications; M19.90 Unspecified osteoarthritis, unspecified site; F41.9 Anxiety disorder, unspecified; F32.9 Major depressive disorder, single episode, unspecified; J45.909 Unspecified asthma, uncomplicated; Z79.899 Other long term (current) drug therapy; Z85.828 Personal history of other malignant neoplasm of skin; Z80.8 Family history of malignant neoplasm of other organs or systems; Z81.8 Family history of other mental and behavioral disorders
CPT/HCPCS: 43235; 45385; 88305; J3010

== ENCOUNTER → 2021-01-21 | Outpatient (REF) | payer OTHER ==
[~2021-01-21] MED LIST changes: -LIDOCAINE 2% 100MG/5ML SDV (FOR ANES.) As Ordered ONE; -NS 1,000 ML IV ONE; -fentaNYL 100 MCG/2 ML INJECTION (J3010) As Ordered ONE; -propofoL 200 MG/20 ML VIAL As Ordered ONE
[2021-01-21 13:08] LABS: BLOOD UREA NITROGEN 12 MG/DL (7-18); CALCIUM LEVEL 8.6 MG/DL (8.8-10.2); CARBON DIOXIDE LEVEL 25 MEQ/L (21-32); CHLORIDE LEVEL 111 MEQ/L (98-107); CHOLESTEROL LEVEL 272 MG/DL (<200); CHOLESTEROL RISK RATIO 5.037 (<5); CREATININE FOR GFR 0.86 MG/DL (0.70-1.30); GLOMERULAR FILTRATION RATE > 60.0 (>49); GLUCOSE, FASTING 135 MG/DL (70-100); HDL CHOLESTEROL 54 MG/DL (>40); LDL CHOLESTEROL 179 MG/DL (<100); NON-HDL-C 218 MG/DL; POTASSIUM SERUM 4.1 MEQ/L (3.5-5.1); SODIUM LEVEL 141 MEQ/L (136-145); TRIGLYCERIDES LEVEL 193 MG/DL (<150)
[2021-01-21 13:20] LABS: MALB URINE SIEMENS 29.5 MG/L; MAU/CREAT RATIO 11.1 MCG/MG (0.0-30.0)
== END ==
LOC: M SFHCCLAY 07:31
PROVIDERS: ATTEND Family Medicine
DX: E11.29 Type 2 diabetes mellitus with other diabetic kidney complication (principal)

== ENCOUNTER → 2021-09-26 | Outpatient (REF) | payer OTHER ==
[2021-09-26 12:33] LABS: ALBUMIN 3.6 GM/DL (3.2-5.2); ALT/SGPT 18 U/L (12-78); BILIRUBIN,TOTAL 0.4 MG/DL (0.2-1.0); BLOOD UREA NITROGEN 13 MG/DL (7-18); CALCIUM LEVEL 8.8 MG/DL (8.8-10.2); CARBON DIOXIDE LEVEL 23 MEQ/L (21-32); CHLORIDE LEVEL 112 MEQ/L (98-107); CHOLESTEROL LEVEL 182 MG/DL (<200); CREATININE FOR GFR 0.86 MG/DL (0.70-1.30); GLOMERULAR FILTRATION RATE > 60.0 (>49); GLUCOSE, FASTING 128 MG/DL (70-100); HDL CHOLESTEROL 50 MG/DL (>40); LDL CHOLESTEROL 113 MG/DL (<100); NON-HDL-C 132 MG/DL; POTASSIUM SERUM 4.7 MEQ/L (3.5-5.1); SODIUM LEVEL 140 MEQ/L (136-145); TOTAL PROTEIN 6.9 GM/DL (6.4-8.2); TRIGLYCERIDES LEVEL 95 MG/DL (<150)
[2021-09-26 14:19] LABS: HEMOGLOBIN A1c 5.4 %
== END ==
LOC: M SFHCCLAY 08:21
PROVIDERS: ATTEND Family Medicine
DX: E11.40 Type 2 diabetes mellitus with diabetic neuropathy, unspecified (principal); I11.9 Hypertensive heart disease without heart failure; E78.5 Hyperlipidemia, unspecified

== ENCOUNTER → 2021-11-03 | Outpatient (CLI) | payer OTHER ==
[~2021-11-03] MED LIST changes: +ATOR1TAB19 PO
== END ==
LOC: M LABSMTC 09:08
PROVIDERS: ATTEND Anesthesiology
DX: Z01.818 Encounter for other preprocedural examination (principal); Z11.52 Encounter for screening for COVID-19

== ENCOUNTER 2021-11-08 08:35 | Day surgery (SDC) | payer OTHER ==
[~2021-11-08] VITALS: Ht 185.4 cm; Wt 98.0 kg
[~2021-11-08 08:35] MED LIST changes: +LIDOCAINE 2% 100MG/5ML SDV (FOR ANES.) As Ordered ONE; +NS 1,000 ML IV ONE; +propofoL 200 MG/20 ML VIAL As Ordered ONE
[2021-11-08 10:58] VITALS: BP 125/83
== END 2021-11-08 11:00 | disposition home or self-care (01) ==
LOC: M OPP 08:35
PROVIDERS: ATTEND Internal Medicine Gastroenterology
DX: Z86.010 Personal history of colon polyps (principal); Z09 Encounter for follow-up examination after completed treatment for conditions other than malignant neoplasm; K64.8 Other hemorrhoids; K63.5 Polyp of colon; Z79.02 Long term (current) use of antithrombotics/antiplatelets; Z79.899 Other long term (current) drug therapy

== ENCOUNTER → 2022-03-30 | Outpatient (REF) | payer OTHER ==
[~2022-03-30] MED LIST changes: -LIDOCAINE 2% 100MG/5ML SDV (FOR ANES.) As Ordered ONE; -NS 1,000 ML IV ONE; -propofoL 200 MG/20 ML VIAL As Ordered ONE
[2022-03-30 19:18] LABS: BASO % 0.4 % (0.0-1.0); EOS # 0.1 10^3/uL (0.0-0.5); EOS % 1.3 % (0.0-3.0); HEMATOCRIT 46.8 % (42.0-52.0); HEMOGLOBIN 15.4 g/dl (13.5-17.5); LYMPH # 2.3 10^3/uL (1.5-5.0); LYMPH % 32.9 % (24.0-44.0); MEAN CORPUSCULAR HGB CONC 32.9 g/dl (32.0-36.5); MEAN CORPUSCULAR VOLUME 97.3 fl (80.0-96.0); MONO # 0.4 10^3/uL (0.0-0.8); MONO % 5.4 % (2.0-8.0); NEUTROPHILS # 4.1 10^3/uL (1.5-8.5); NEUTROPHILS % 59.7 % (36.0-66.0); PLATELET COUNT, AUTOMATED 248 10^3/uL (150-450); RED BLOOD COUNT 4.81 10^6/uL (4.30-6.10); WHITE BLOOD COUNT 6.8 10^3/uL (4.0-10.0)
[2022-03-30 20:32] LABS: ALBUMIN 3.8 GM/DL (3.2-5.2); ALT/SGPT 24 U/L (12-78); BILIRUBIN,TOTAL 0.5 MG/DL (0.2-1.0); BLOOD UREA NITROGEN 11 MG/DL (7-18); CALCIUM LEVEL 9.4 MG/DL (8.8-10.2); CARBON DIOXIDE LEVEL 24 MEQ/L (21-32); CHLORIDE LEVEL 107 MEQ/L (98-107); CREATININE FOR GFR 0.88 MG/DL (0.70-1.30); GLOMERULAR FILTRATION RATE > 60.0 (>49); GLUCOSE, FASTING 129 MG/DL (70-100); POTASSIUM SERUM 4.7 MEQ/L (3.5-5.1); SODIUM LEVEL 137 MEQ/L (136-145); TOTAL PROTEIN 7.5 GM/DL (6.4-8.2)
[2022-03-30 20:47] LABS: HEMOGLOBIN A1c 5.9 %; MALB URINE SIEMENS 19.6 MG/L; MAU/CREAT RATIO 9.7 MCG/MG (0.0-30.0)
== END ==
LOC: M SFHCCLAY 10:08
PROVIDERS: ATTEND Nurse Practitioner Family
DX: E11.29 Type 2 diabetes mellitus with other diabetic kidney complication (principal); R80.9 Proteinuria, unspecified; K76.0 Fatty (change of) liver, not elsewhere classified; I11.9 Hypertensive heart disease without heart failure

== ENCOUNTER → 2022-06-19 | Outpatient (REF) | payer OTHER ==
[2022-06-19 12:03] LABS: ALKALINE PHOSPHATASE 80 U/L (46-116); ALT/SGPT 19 U/L (7.0-40); AST/SGOT 17 U/L (<34); BILIRUBIN,TOTAL 0.4 MG/DL (0.3-1.2); BLOOD UREA NITROGEN 16 MG/DL (9-23); CALCIUM LEVEL 9.2 MG/DL (8.3-10.6); CARBON DIOXIDE LEVEL 27 MMOL/L (20-31); CHLORIDE LEVEL 105 MMOL/L (98-107); CHOLESTEROL LEVEL 263 MG/DL (<200); GLOMERULAR FILTRATION RATE > 60.0 (>49); GLUCOSE, FASTING 137 MG/DL (74-106); HDL CHOLESTEROL 47.8 MG/DL (>40); LDL CHOLESTEROL 181.4 MG/DL (<100); NON-HDL-C 215 MG/DL; POTASSIUM SERUM 4.7 MMOL/L (3.5-5.1); SODIUM LEVEL 140 MMOL/L (136-145); TOTAL PROTEIN 7.2 G/DL (5.7-8.2); TRIGLYCERIDES LEVEL 169 MG/DL (<150)
[2022-06-19 12:29] LABS: HEMOGLOBIN A1c 5.7 % (4.0-6.0)
== END ==
LOC: M SFHCCLAY 08:51
PROVIDERS: ATTEND Nurse Practitioner Family
DX: K76.0 Fatty (change of) liver, not elsewhere classified (principal); E11.40 Type 2 diabetes mellitus with diabetic neuropathy, unspecified; E78.2 Mixed hyperlipidemia

== ENCOUNTER → 2023-04-19 | Outpatient (CLI) | payer OTHER | LOC: M CLY 14:53 | PROVIDERS: ATTEND Physician Assistant | DX: R05.1 Acute cough (principal) ==

== ENCOUNTER → 2023-07-03 | Outpatient (REF) | payer OTHER ==
[2023-07-03 12:10] LABS: HEMOGLOBIN A1c 5.9 % (4.0-6.0)
[2023-07-03 12:15] LABS: ALBUMIN 3.8 G/DL (3.2-5.2); ALKALINE PHOSPHATASE 74 U/L (46-116); ALT/SGPT 18 U/L (7.0-40); AST/SGOT 16 U/L (<34); BILIRUBIN,TOTAL 0.5 MG/DL (0.3-1.2); BLOOD UREA NITROGEN 16 MG/DL (9-23); CALCIUM LEVEL 9.3 MG/DL (8.3-10.6); CARBON DIOXIDE LEVEL 27 MMOL/L (20-31); CHLORIDE LEVEL 112 MMOL/L (98-107); CHOLESTEROL LEVEL 253 MG/DL (<200); CHOLESTEROL RISK RATIO 5.65 (<5); CREATININE FOR GFR 0.82 MG/DL (0.70-1.30); GLOMERULAR FILTRATION RATE > 60.0 (>49); GLUCOSE, FASTING 122 MG/DL (74-106); HDL CHOLESTEROL 44.7 MG/DL (>40); LDL CHOLESTEROL 178.7 MG/DL (<100); NON-HDL-C 208.3 MG/DL; POTASSIUM SERUM 4.4 MMOL/L (3.5-5.1); SODIUM LEVEL 141 MMOL/L (136-145); TRIGLYCERIDES LEVEL 148 MG/DL (<150)
== END ==
LOC: M SFHCCLAY 08:46
PROVIDERS: ATTEND Nurse Practitioner Family
DX: I10 Essential (primary) hypertension (principal); E78.2 Mixed hyperlipidemia; K76.0 Fatty (change of) liver, not elsewhere classified; E11.40 Type 2 diabetes mellitus with diabetic neuropathy, unspecified

== ENCOUNTER → 2023-11-27 | Outpatient (REF) | payer OTHER, SELFPAY ==
[2023-11-27 17:56] LABS: BASO % 0.6 % (0.0-1.0); EOS # 0.1 10^3/uL (0.0-0.5); EOS % 2.5 % (0.0-3.0); HEMATOCRIT 44.7 % (42.0-52.0); LYMPH # 2.5 10^3/uL (1.5-5.0); LYMPH % 48.4 % (24.0-44.0); MEAN CORPUSCULAR HEMOGLOBIN 32.3 pg (27.0-33.0); MEAN CORPUSCULAR HGB CONC 33.6 g/dl (32.0-36.5); MEAN CORPUSCULAR VOLUME 96.1 fl (80.0-96.0); MONO # 0.4 10^3/uL (0.0-0.8); MONO % 8.3 % (2.0-8.0); NEUTROPHILS # 2.1 10^3/uL (1.5-8.5); PLATELET COUNT, AUTOMATED 206 10^3/uL (150-450); RED BLOOD COUNT 4.65 10^6/uL (4.30-6.10); WHITE BLOOD COUNT 5.2 10^3/uL (4.0-10.0)
[2023-11-27 18:16] LABS: HEMOGLOBIN A1c 5.7 % (4.0-6.0)
[2023-11-27 18:18] LABS: ALBUMIN 3.8 G/DL (3.2-5.2); ALKALINE PHOSPHATASE 81 U/L (46-116); ALT/SGPT 13 U/L (7.0-40); AST/SGOT < 8 U/L (<34); BILIRUBIN,TOTAL 0.4 MG/DL (0.3-1.2); BLOOD UREA NITROGEN 15 MG/DL (9-23); CALCIUM LEVEL 9.1 MG/DL (8.3-10.6); CARBON DIOXIDE LEVEL 25 MMOL/L (20-31); CHLORIDE LEVEL 110 MMOL/L (98-107); CHOLESTEROL LEVEL 239 MG/DL (<200); CHOLESTEROL RISK RATIO 6.42 (<5); CREATININE FOR GFR 0.78 MG/DL (0.70-1.30); FERRITIN 569.8 NG/ML (10.5-307.3); GLOMERULAR FILTRATION RATE > 60.0 (>49); GLUCOSE, FASTING 111 MG/DL (74-106); HDL CHOLESTEROL 37.2 MG/DL (>40); IRON (FE) 106 UG/DL (65-175); LDL CHOLESTEROL 154.2 MG/DL (<100); NON-HDL-C 201.8 MG/DL; PERCENT SATURATION 38.1 % (19.7-50.0); POTASSIUM SERUM 4.7 MMOL/L (3.5-5.1); SODIUM LEVEL 140 MMOL/L (136-145); TOTAL IRON BINDING CAPACITY 278 UG/DL (250-425); TRIGLYCERIDES LEVEL 238 MG/DL (<150)
[2023-11-27 18:19] LABS: FOLATE 15.43 NG/ML (>5.4)
[2023-11-27 18:20] LABS: VITAMIN B12 LEVEL 410 PG/ML (211-911)
== END ==
LOC: M SFHCCLAY 11:53
PROVIDERS: ATTEND Nurse Practitioner Family
DX: G62.9 Polyneuropathy, unspecified (principal); E78.2 Mixed hyperlipidemia; F10.10 Alcohol abuse, uncomplicated; E11.40 Type 2 diabetes mellitus with diabetic neuropathy, unspecified

== ENCOUNTER → 2023-12-28 | Outpatient (REF) | payer MEDICAID, SELFPAY ==
[2023-12-28 18:35] LABS: CHOLESTEROL RISK RATIO 3.63 (<5); HDL CHOLESTEROL 44.9 MG/DL (>40); LDL CHOLESTEROL 100.5 MG/DL (<100); MAGNESIUM LEVEL 2.1 MG/DL (1.8-2.4); NON-HDL-C 118.1 MG/DL
== END ==
LOC: M SFHCCLAY 10:08
PROVIDERS: ATTEND Nurse Practitioner Family
DX: E78.2 Mixed hyperlipidemia (principal)

== ENCOUNTER → 2024-01-18 | Outpatient (REF) | payer MEDICAID ==
[2024-01-18 18:09] LABS: BASO % 0.4 % (0.0-1.0); EOS # 0.1 10^3/uL (0.0-0.5); EOS % 2.5 % (0.0-3.0); HEMATOCRIT 43.7 % (42.0-52.0); HEMOGLOBIN 15.2 g/dl (13.5-17.5); LYMPH # 2.5 10^3/uL (1.5-5.0); LYMPH % 47.2 % (24.0-44.0); MEAN CORPUSCULAR HEMOGLOBIN 33.3 pg (27.0-33.0); MEAN CORPUSCULAR HGB CONC 34.8 g/dl (32.0-36.5); MEAN CORPUSCULAR VOLUME 95.8 fl (80.0-96.0); MONO # 0.4 10^3/uL (0.0-0.8); MONO % 7.4 % (2.0-8.0); NEUTROPHILS # 2.2 10^3/uL (1.5-8.5); NEUTROPHILS % 42.3 % (36.0-66.0); PLATELET COUNT, AUTOMATED 229 10^3/uL (150-450); RED BLOOD COUNT 4.56 10^6/uL (4.30-6.10); WHITE BLOOD COUNT 5.3 10^3/uL (4.0-10.0)
[2024-01-18 18:18] LABS: ERYTHROCYTE SEDIMENTATION RATE 33 mm/hr (0-20)
[2024-01-18 18:35] LABS: THYROID STIMULATING HORMONE 1.242 uIU/ML (0.55-4.78); VITAMIN B12 LEVEL 420 PG/ML (211-911)
[2024-01-18 18:38] LABS: HEMOGLOBIN A1c 5.7 % (4.0-6.0); RHEUMATOID FACTOR QUANT 5.9 IU/ML (<14)
[2024-01-18 18:39] LABS: ALBUMIN 3.9 G/DL (3.2-5.2); ALKALINE PHOSPHATASE 82 U/L (46-116); ALT/SGPT 17 U/L (7.0-40); AST/SGOT 13 U/L (<34); BILIRUBIN,TOTAL 0.3 MG/DL (0.3-1.2); BLOOD UREA NITROGEN 16 MG/DL (9-23); CALCIUM LEVEL 9.2 MG/DL (8.3-10.6); CARBON DIOXIDE LEVEL 26 MMOL/L (20-31); CHLORIDE LEVEL 111 MMOL/L (98-107); CREATININE FOR GFR 0.74 MG/DL (0.70-1.30); FOLATE 14.5 NG/ML (>5.4); GLOMERULAR FILTRATION RATE > 60.0 (>49); GLUCOSE, FASTING 118 MG/DL (74-106); POTASSIUM SERUM 4.6 MMOL/L (3.5-5.1); SODIUM LEVEL 141 MMOL/L (136-145); TOTAL PROTEIN 7.1 G/DL (5.7-8.2)
[2024-01-20 03:27] LABS: T P ELECTROPHORESIS SO 7.1 g/dL (6.1-8.1)
[2024-01-21 14:31] LABS: ANA SCREEN, IFA NEGATIVE (NEGATIVE)
[2024-01-22 11:08] LABS: ALBUMIN SPEP 4.4 g/dL (3.8-4.8); ALPHA-1-GLOBULINS SO 0.2 g/dL (0.2-0.3); ALPHA-2-GLOBULINS SO 0.7 g/dL (0.5-0.9); BETA 2 GLOBULIN 0.5 g/dL (0.2-0.5); BETA-GLOBULIN SO 0.4 g/dL (0.4-0.6); GAMMA GLOBULINS SO 0.9 g/dL (0.8-1.7)
[2024-01-24 10:33] LABS: VITAMIN E(ALPHA TOCOPHEROL) 18.8 mg/L (5.7-19.9); VITAMIN E(GAMMA TOCOPHEROL) 6.9 mg/L (<=4.3)
[2024-01-25 08:28] LABS: VITAMIN B6,PYRIDOXAL PHOSPHATE 12.4 ng/mL (2.1-21.7)
== END ==
LOC: M LABDRAWC 16:31
PROVIDERS: ATTEND Psychiatry & Neurology Neurology
DX: G62.9 Polyneuropathy, unspecified (principal)

== ENCOUNTER → 2024-02-19 | Outpatient (CLI) | payer MEDICAID | LOC: M CLY 14:00 | PROVIDERS: ATTEND Physician Assistant | DX: M25.551 Pain in right hip (principal); M25.552 Pain in left hip ==

== ENCOUNTER → 2024-02-19 | Outpatient (CLI) | payer MEDICAID | LOC: M CLY 14:51 | PROVIDERS: ATTEND Physician Assistant | DX: M25.551 Pain in right hip (principal); M25.552 Pain in left hip ==

== ENCOUNTER → 2024-02-19 | Outpatient (REF) | payer MEDICAID ==
[2024-02-19 18:16] LABS: RSV AMPLIFICATION NEGATIVE (NEGATIVE)
== END ==
LOC: M SFHCCLAY 17:01
PROVIDERS: ATTEND Physician Assistant
DX: R05.1 Acute cough (principal)

== ENCOUNTER → 2024-05-07 | Outpatient (REF) | payer MEDICAID, OTHER ==
[2024-05-07 17:59] LABS: ALBUMIN 3.8 G/DL (3.2-5.2); ALKALINE PHOSPHATASE 82 U/L (40-129); ALT/SGPT 13 U/L (7.0-40); AST/SGOT 11 U/L (<34); BILIRUBIN,TOTAL 0.4 MG/DL (0.3-1.2); BLOOD UREA NITROGEN 14 MG/DL (9-23); CALCIUM LEVEL 9.7 MG/DL (8.3-10.6); CARBON DIOXIDE LEVEL 25 MMOL/L (20-31); CHLORIDE LEVEL 107 MMOL/L (98-107); CHOLESTEROL LEVEL 279 MG/DL (<200); CREATININE FOR GFR 0.83 MG/DL (0.70-1.30); GLOMERULAR FILTRATION RATE > 60.0 (>49); GLUCOSE, FASTING 110 MG/DL (74-106); HDL CHOLESTEROL 40.4 MG/DL (>40); LDL CHOLESTEROL 202.2 MG/DL (<100); NON-HDL-C 238.6 MG/DL; POTASSIUM SERUM 4.5 MMOL/L (3.5-5.1); PSA SCREENING 0.43 NG/ML (< 4.00); SODIUM LEVEL 137 MMOL/L (136-145); TOTAL PROTEIN 7.5 G/DL (5.7-8.2); TRIGLYCERIDES LEVEL 182 MG/DL (<150)
[2024-05-07 18:36] LABS: HEMOGLOBIN A1c 5.8 % (4.0-6.0)
== END ==
LOC: M SFHCCLAY 11:23
PROVIDERS: ATTEND Nurse Practitioner Family
DX: G62.9 Polyneuropathy, unspecified (principal); K76.0 Fatty (change of) liver, not elsewhere classified; F10.11 Alcohol abuse, in remission; I10 Essential (primary) hypertension; Z12.5 Encounter for screening for malignant neoplasm of prostate; E78.2 Mixed hyperlipidemia; E11.40 Type 2 diabetes mellitus with diabetic neuropathy, unspecified

== ENCOUNTER → 2024-05-13 | Outpatient (CLI) | payer OTHER | LOC: M CLY 11:31 | PROVIDERS: ATTEND Nurse Practitioner Family | DX: R06.02 Shortness of breath (principal) ==

== ENCOUNTER → 2024-06-21 | Outpatient (REF) | payer OTHER | LOC: M LAB REF 17:11 | PROVIDERS: ATTEND Physician Assistant Medical | DX: J06.9 Acute upper respiratory infection, unspecified (principal) ==

== ENCOUNTER → 2024-07-02 | Outpatient (REF) | payer MEDICAID ==
[2024-07-02 18:09] LABS: ALBUMIN 3.7 G/DL (3.2-5.2); ALKALINE PHOSPHATASE 65 U/L (40-129); ALT/SGPT 20 U/L (7.0-40); AST/SGOT 15 U/L (<34); BILIRUBIN,TOTAL 0.6 MG/DL (0.3-1.2); BLOOD UREA NITROGEN 12 MG/DL (9-23); CALCIUM LEVEL 9.5 MG/DL (8.3-10.6); CARBON DIOXIDE LEVEL 28 MMOL/L (20-31); CHLORIDE LEVEL 107 MMOL/L (98-107); CHOLESTEROL LEVEL 188 MG/DL (<200); CHOLESTEROL RISK RATIO 3.64 (<5); CREATININE FOR GFR 0.74 MG/DL (0.70-1.30); GLOMERULAR FILTRATION RATE > 60.0 (>49); GLUCOSE, FASTING 114 MG/DL (74-106); HDL CHOLESTEROL 51.6 MG/DL (>40); LDL CHOLESTEROL 108.8 MG/DL (<100); NON-HDL-C 136.4 MG/DL; POTASSIUM SERUM 4.7 MMOL/L (3.5-5.1); SODIUM LEVEL 142 MMOL/L (136-145); TOTAL PROTEIN 7.3 G/DL (5.7-8.2); TRIGLYCERIDES LEVEL 138 MG/DL (<150)
== END ==
LOC: M SFHCCLAY 09:55
PROVIDERS: ATTEND Nurse Practitioner Family
DX: E78.2 Mixed hyperlipidemia (principal)

== ENCOUNTER → 2024-12-29 | Outpatient (REF) | payer OTHER ==
[2024-12-29 18:42] LABS: ALT/SGPT 18 U/L (7.0-40); AST/SGOT 17 U/L (<34); CALCIUM LEVEL 9.3 MG/DL (8.3-10.6); CARBON DIOXIDE LEVEL 26 MMOL/L (20-31); CHLORIDE LEVEL 106 MMOL/L (98-107); CHOLESTEROL LEVEL 200 MG/DL (<200); CHOLESTEROL RISK RATIO 4.38 (<5); CREATININE FOR GFR 0.84 MG/DL (0.70-1.30); GLOMERULAR FILTRATION RATE > 90.0 (>49); LDL CHOLESTEROL 121.8 MG/DL (<100); NON-HDL-C 154.4 MG/DL; POTASSIUM SERUM 4.5 MMOL/L (3.5-5.1); SODIUM LEVEL 143 MMOL/L (136-145); TRIGLYCERIDES LEVEL 163 MG/DL (<150)
[2024-12-29 19:45] LABS: ESTIMATED AVERAGE GLUCOSE 123.0 MG/DL (60-110)
== END ==
LOC: M SFHCCLAY 09:53
PROVIDERS: ATTEND Nurse Practitioner Family
DX: E11.40 Type 2 diabetes mellitus with diabetic neuropathy, unspecified (principal); E78.2 Mixed hyperlipidemia; K76.0 Fatty (change of) liver, not elsewhere classified; F10.11 Alcohol abuse, in remission; I10 Essential (primary) hypertension

== ENCOUNTER → 2025-01-30 | Outpatient (CLI) | payer OTHER | LOC: M PLAIMG 09:03 | PROVIDERS: ATTEND Physician Assistant Medical | DX: J32.0 Chronic maxillary sinusitis (principal) ==

== ENCOUNTER 2025-02-23 08:51 | Day surgery (SDC) | payer OTHER ==
[~2025-02-23] VITALS: Ht 185.4 cm; Wt 95.3 kg
[~2025-02-23 08:51] MED LIST changes: +FLUTISP; +ROSU20TA86 PO
[2025-02-23 11:44] VITALS: BP 132/89; O2SAT 98
== END 2025-02-23 11:57 | disposition home or self-care (01) ==
LOC: M OPP 08:51
PROVIDERS: ATTEND Internal Medicine Gastroenterology
DX: D12.4 Benign neoplasm of descending colon (principal); K57.30 Diverticulosis of large intestine without perforation or abscess without bleeding; K64.8 Other hemorrhoids; Z86.0100 Personal history of colon polyps, unspecified; Z91.048 Other nonmedicinal substance allergy status; Z79.899 Other long term (current) drug therapy; J45.909 Unspecified asthma, uncomplicated